=== PATIENT | male | born 1935 | race Caucasian/White ===

== ENCOUNTER 2016-10-03 13:28 | Outpatient (RCR) | payer MEDICARE, BC ==
[~2016-10-03 13:28] MED LIST: ATORVASTATIN CA10 MG PO; CARAFATE PO; COUMADIN7.5 MG PO; CYCLOSPORINE25 MG PO; GABAPENTIN100 MG PO; GABAPENTIN600 MG PO; IMIPRAMINE25 MG PO; INDERAL 10MG10 MG PO; MIDODRINE HCL5 MG PO; OMEPRAZOLE40 MG PO; SIMVASTATIN80 MG PO; [UNRECOGNIZED DRUG - REMARK]; [UNRECOGNIZED DRUG - REMARK]
== END 2017-01-01 | disposition home or self-care (01) ==
LOC: CARDREHAB 13:28
DX: Z48.812 Encounter for surgical aftercare following surgery on the circulatory system (principal); I21.4 Non-ST elevation (NSTEMI) myocardial infarction

== ENCOUNTER → 2017-01-27 | Outpatient (CLI) | payer MEDICARE, BC | LOC: RAD 14:37 | DX: R09.89 Other specified symptoms and signs involving the circulatory and respiratory systems (principal) ==

== ENCOUNTER → 2017-02-06 | Outpatient (CLI) | payer MEDICARE, BC | LOC: LAB 14:20 | DX: N18.4 Chronic kidney disease, stage 4 (severe) (principal); N04.9 Nephrotic syndrome with unspecified morphologic changes ==

== ENCOUNTER → 2017-05-12 | Outpatient (CLI) | payer MEDICARE, BC ==
[2015-09-23 10:20] VITALS: BP 155/91
== END ==
LOC: LAB 13:41
DX: N18.4 Chronic kidney disease, stage 4 (severe) (principal); E87.2 Acidosis

== ENCOUNTER → 2017-06-22 | Outpatient (CLI) | payer MEDICARE, BC ==
[2015-09-23 10:20] VITALS: BP 155/91
== END ==
LOC: LAB 10:17
DX: N18.4 Chronic kidney disease, stage 4 (severe) (principal); N04.9 Nephrotic syndrome with unspecified morphologic changes

== ENCOUNTER → 2017-08-24 | Outpatient (CLI) | payer MEDICARE, BC ==
[2015-09-23 10:20] VITALS: BP 155/91
== END ==
LOC: LAB 08:04
DX: N18.4 Chronic kidney disease, stage 4 (severe) (principal); N40.1 Benign prostatic hyperplasia with lower urinary tract symptoms; N04.9 Nephrotic syndrome with unspecified morphologic changes

== ENCOUNTER → 2017-08-29 | Outpatient (CLI) | payer MEDICARE, BC ==
[2015-09-23 10:20] VITALS: BP 155/91
== END ==
LOC: RAD 11:02
DX: I70.201 Unspecified atherosclerosis of native arteries of extremities, right leg (principal); R22.41 Localized swelling, mass and lump, right lower limb

== ENCOUNTER → 2017-12-04 | Outpatient (CLI) | payer MEDICARE, BC ==
[2015-09-23 10:20] VITALS: BP 155/91
[2017-12-04 14:43] LABS: HEMATOCRIT 38.6 % (42.0-52.0); HEMOGLOBIN 12.6 g/dL (13.5-18.0); MEAN CELL VOLUME 98 fl (78-100); MEAN CORPUSCULAR HEMOGLOBIN 32 pg (27-31); MEAN CORPUSCULAR HGB CONC 33 g/dL (33-37); MEAN PLATELET VOLUME 9.5 fl (7.4-10.4); PLATELET COUNT 215 K/mm3 (130-400); RED BLOOD COUNT 3.93 M/mm3 (4.20-5.60); RED CELL DISTRIBUTION WIDTH 13.6 % (11.5-14.5); WHITE BLOOD COUNT 5.3 K/mm3 (4.8-10.8)
[2017-12-04 14:51] LABS: ALBUMIN 4.3 g/dL (3.5-5.0); BUN/CREATININE RATIO 17.3 (6.0-26.0); CALCIUM 8.5 mg/dL (8.4-10.2); POTASSIUM 4.4 mmol/L (3.6-5.0); TOTAL BILIRUBIN 0.8 mg/dL (0.2-1.3); TOTAL PROTEIN 7.6 g/dL (6.3-8.2)
[2017-12-04 16:13] LABS: URINE APPEARANCE CLEAR; URINE BILIRUBIN NEGATIVE (NEGATIVE); URINE BLOOD NEGATIVE (NEGATIVE); URINE COLOR YELLOW; URINE GLUCOSE NEGATIVE (NEGATIVE); URINE KETONE NEGATIVE (NEGATIVE); URINE LEUKOCYTE ESTERASE NEGATIVE (NEGATIVE); URINE NITRATE NEGATIVE (NEGATIVE); URINE PROTEIN(semi-quant) TRACE mg/dL (NEGATIVE); URINE UROBILINOGEN NORMAL (NORMAL); URINE WBC 0-1 /hpf (0-3)
[2017-12-04 21:19] LABS: LYMPHOCYTE 15 % (20-51); MONOCYTE 12 % (3-10); NEUTROPHILS 64 % (42-75)
[2017-12-04 21:20] LABS: ERYTHROCYTE SEDIMENTATION RATE 14 mm/hr (0-20)
[2017-12-04 22:55] LABS: C-REACTIVE PROTEIN XXX
[2017-12-05 23:51] LABS: ANA SCREEN with REFLEX Positive (Negative)
== END ==
LOC: LAB 14:11
PROVIDERS: Internal Medicine
DX: N18.3 Chronic kidney disease, stage 3 (moderate) (principal); I25.10 Atherosclerotic heart disease of native coronary artery without angina pectoris; Z12.5 Encounter for screening for malignant neoplasm of prostate; L29.9 Pruritus, unspecified; E78.2 Mixed hyperlipidemia

== ENCOUNTER → 2017-12-15 | Outpatient (CLI) | payer MEDICARE, BC ==
[2015-09-23 10:20] VITALS: BP 155/91
== END ==
LOC: LAB 13:10
DX: N18.3 Chronic kidney disease, stage 3 (moderate) (principal); M79.1 Myalgia

== ENCOUNTER → 2017-12-21 | Outpatient (CLI) | payer MEDICARE, BC ==
[2015-09-23 10:20] VITALS: BP 155/91
== END ==
LOC: RAD 14:33
DX: J84.112 Idiopathic pulmonary fibrosis (principal); N04.2 Nephrotic syndrome with diffuse membranous glomerulonephritis; R91.8 Other nonspecific abnormal finding of lung field; I25.10 Atherosclerotic heart disease of native coronary artery without angina pectoris; I70.0 Atherosclerosis of aorta

== ENCOUNTER → 2018-01-01 | Outpatient (CLI) | payer MEDICARE, BC ==
[2015-09-23 10:20] VITALS: BP 155/91
[2018-01-01 13:23] LABS: HEMATOCRIT 37.6 % (42.0-52.0); HEMOGLOBIN 12.3 g/dL (13.5-18.0); MEAN CELL VOLUME 98 fl (78-100); MEAN CORPUSCULAR HEMOGLOBIN 32 pg (27-31); MEAN CORPUSCULAR HGB CONC 33 g/dL (33-37); MEAN PLATELET VOLUME 9.8 fl (7.4-10.4); PLATELET COUNT 202 K/mm3 (130-400); RED BLOOD COUNT 3.85 M/mm3 (4.20-5.60); WHITE BLOOD COUNT 4.3 K/mm3 (4.8-10.8)
[2018-01-01 13:29] LABS: BUN/CREATININE RATIO 17.5 (6.0-26.0); CALCIUM 8.5 mg/dL (8.4-10.2); POTASSIUM 4.6 mmol/L (3.6-5.0)
[2018-01-01 14:17] LABS: LYMPHOCYTE 16 % (20-51); MONOCYTE 7 % (3-10); NEUTROPHILS 66 % (42-75)
== END ==
LOC: LAB 11:50
PROVIDERS: Internal Medicine
DX: N18.4 Chronic kidney disease, stage 4 (severe) (principal); N04.9 Nephrotic syndrome with unspecified morphologic changes

== ENCOUNTER → 2018-03-15 | Outpatient (CLI) | payer MEDICARE, BC ==
[2015-09-23 10:20] VITALS: BP 155/91
[2018-03-15 09:41] LABS: HEMATOCRIT 36.8 % (42.0-52.0); HEMOGLOBIN 12.2 g/dL (13.5-18.0); MEAN CELL VOLUME 98 fl (78-100); MEAN CORPUSCULAR HEMOGLOBIN 33 pg (27-31); MEAN CORPUSCULAR HGB CONC 33 g/dL (33-37); MEAN PLATELET VOLUME 9.1 fl (7.4-10.4); PLATELET COUNT 201 K/mm3 (130-400); RED BLOOD COUNT 3.74 M/mm3 (4.20-5.60); RED CELL DISTRIBUTION WIDTH 13.6 % (11.5-14.5); WHITE BLOOD COUNT 4.9 K/mm3 (4.8-10.8)
[2018-03-15 09:47] LABS: ALBUMIN 3.6 g/dL (3.5-5.0); BUN/CREATININE RATIO 16.9 (6.0-26.0); CALCIUM 8.4 mg/dL (8.4-10.2); POTASSIUM 4.1 mmol/L (3.6-5.0); TOTAL BILIRUBIN 0.7 mg/dL (0.2-1.3); TOTAL PROTEIN 6.8 g/dL (6.3-8.2)
[2018-03-15 10:38] LABS: LYMPHOCYTE 9 % (20-51); MONOCYTE 9 % (3-10); NEUTROPHILS 75 % (42-75)
[2018-03-15 22:58] LABS: IGM,SERUM 49 mg/dL (22-240); IMMUNOGLOBULIN A 206 mg/dL (101-645); IMMUNOGLOBULIN G 912 mg/dL (540-1822)
[2018-03-15 23:16] LABS: HEPATITIS B CORE AB TOTAL Negative (()); HEPATITIS B SURFACE ANTIGEN Negative (())
[2018-03-15 23:17] LABS: HEPATITIS B SURFACE ANTIBODY <2.0 (()); HEPATITIS C VIRUS ANTIBODY Negative (())
== END ==
LOC: LAB 09:04
DX: L12.0 Bullous pemphigoid (principal); Z11.59 Encounter for screening for other viral diseases; Z11.4 Encounter for screening for human immunodeficiency virus [HIV]; Z79.899 Other long term (current) drug therapy

== ENCOUNTER → 2018-03-20 | Outpatient (CLI) | payer MEDICARE, BC ==
[2015-09-23 10:20] VITALS: BP 155/91
== END ==
LOC: LAB 10:33
DX: L12.0 Bullous pemphigoid (principal); Z79.899 Other long term (current) drug therapy; Z11.59 Encounter for screening for other viral diseases; Z11.4 Encounter for screening for human immunodeficiency virus [HIV]

== ENCOUNTER 2018-04-10 13:27 | Observation (INO) | payer MEDICARE, BC ==
[~2018-04-10] VITALS: Ht 185.4 cm; Wt 85.5 kg
[~2018-04-10 13:27] MED LIST changes: -GABAPENTIN600 MG PO; +NEURONTIN600 M1 PO
[2018-04-10] MEDS ORDERED: NEURONTIN300 MG/CAP PO (13:37)
[2018-04-10] MEDS ORDERED: AMLODIPINE BESYL5 MG PO (13:38)
[2018-04-10] MEDS ORDERED: LORAZEPAM1 M1 PO (13:38)
[2018-04-10] MEDS ORDERED: CLOPIDOGREL75 M2 PEG (13:38)
[2018-04-10] MEDS ORDERED: ASPIRIN 81M81 MG/TA2 PO (13:40)
[2018-04-10] MEDS ORDERED: PANTOPRAZOLE SO40 MG PO (13:40)
[2018-04-10 14:35] VITALS: BP 92/65
[2018-04-10 14:44] LABS: MEAN CELL VOLUME 97 fl (78-100); MEAN CORPUSCULAR HEMOGLOBIN 32 pg (27-31); MEAN CORPUSCULAR HGB CONC 33 g/dL (33-37); MEAN PLATELET VOLUME 9.2 fl (7.4-10.4); PLATELET COUNT 168 K/mm3 (130-400); RED BLOOD COUNT 4.04 M/mm3 (4.20-5.60); RED CELL DISTRIBUTION WIDTH 14.1 % (11.5-14.5); WHITE BLOOD COUNT 5.7 K/mm3 (4.8-10.8)
[2018-04-10 14:59] LABS: LYMPHOCYTE 11 % (20-51); MONOCYTE 11 % (3-10); NEUTROPHILS 76 % (42-75)
[2018-04-10 15:05] LABS: ALBUMIN 3.3 g/dL (3.5-5.0); BUN/CREATININE RATIO 12.9 (6.0-26.0); POTASSIUM 4.2 mmol/L (3.6-5.0); TOTAL PROTEIN 6.4 g/dL (6.3-8.2)
[2018-04-10 15:44] LABS: URINE APPEARANCE HAZY; URINE BILIRUBIN NEGATIVE (NEGATIVE); URINE BLOOD NEGATIVE (NEGATIVE); URINE COLOR YELLOW; URINE GLUCOSE NEGATIVE (NEGATIVE); URINE KETONE NEGATIVE (NEGATIVE); URINE LEUKOCYTE ESTERASE NEGATIVE (NEGATIVE); URINE NITRATE NEGATIVE (NEGATIVE); URINE PROTEIN(semi-quant) TRACE mg/dL (NEGATIVE); URINE UROBILINOGEN NORMAL (NORMAL)
[2018-04-10 17:33] VITALS: BP 131/61
[2018-04-10 19:33] VITALS: BP 133/82
[2018-04-10 19:38] VITALS: BP 133/82
[2018-04-10] MEDS ORDERED: CLOPIDOGREL PO (20:24)
[2018-04-10 23:30] VITALS: BP 105/64
[2018-04-11] VITALS (9 sets, daily range): BP systolic 111–138; BP diastolic 66–86
[2018-04-11 06:23] LABS: BUN/CREATININE RATIO 12.8 (6.0-26.0); CALCIUM 7.4 mg/dL (8.4-10.2); POTASSIUM 4.2 mmol/L (3.6-5.0)
[2018-04-11 06:24] LABS: HEMATOCRIT 36.5 % (42.0-52.0); LYMPHOCYTE 10 % (20-51); MEAN CELL VOLUME 97 fl (78-100); MEAN CORPUSCULAR HEMOGLOBIN 32 pg (27-31); MEAN CORPUSCULAR HGB CONC 33 g/dL (33-37); MEAN PLATELET VOLUME 9.4 fl (7.4-10.4); MONOCYTE 10 % (3-10); NEUTROPHILS 75 % (42-75); PLATELET COUNT 157 K/mm3 (130-400); RED BLOOD COUNT 3.75 M/mm3 (4.20-5.60); RED CELL DISTRIBUTION WIDTH 14.2 % (11.5-14.5)
== END 2018-04-11 22:25 | disposition other institution (70) ==
LOC: ED 13:27 → MED/SURG 18:14
PROVIDERS: Physician Assistant; ADMIT Nurse Practitioner Family
DX: I95.1 Orthostatic hypotension (principal); E86.0 Dehydration; I25.10 Atherosclerotic heart disease of native coronary artery without angina pectoris; E78.5 Hyperlipidemia, unspecified; I12.9 Hypertensive chronic kidney disease with stage 1 through stage 4 chronic kidney disease, or unspecified chronic kidney disease; N18.3 Chronic kidney disease, stage 3 (moderate); G47.33 Obstructive sleep apnea (adult) (pediatric); Z86.711 Personal history of pulmonary embolism; K21.9 Gastro-esophageal reflux disease without esophagitis; Z85.46 Personal history of malignant neoplasm of prostate; Z79.02 Long term (current) use of antithrombotics/antiplatelets; J84.10 Pulmonary fibrosis, unspecified; Z91.81 History of falling; Z79.82 Long term (current) use of aspirin
CPT/HCPCS: G0378; J7030

== ENCOUNTER 2018-04-11 22:10 | Inpatient (IN) | payer MEDICARE, BC ==
[~2018-04-11] VITALS: Ht 185.4 cm; Wt 85.8 kg
[~2018-04-11 22:10] MED LIST changes: +AMLODIPINE BESYL5 MG PO; +ASPIRIN 81M81 MG/TA2 PO; +CLOPIDOGREL PO; +CLOPIDOGREL75 M2 PEG; +LORAZEPAM1 M1 PO; +NEURONTIN300 MG/CAP PO; +PANTOPRAZOLE SO40 MG PO
[2018-04-11 23:27] VITALS: BP 130/86
[2018-04-11 23:32] VITALS: BP 130/86
[2018-04-12 03:00] VITALS: BP 125/61
[2018-04-12 06:40] LABS: BUN/CREATININE RATIO 13.4 (6.0-26.0); CALCIUM 7.6 mg/dL (8.4-10.2); POTASSIUM 4.3 mmol/L (3.6-5.0)
[2018-04-12 06:56] LABS: HEMATOCRIT 34.6 % (42.0-52.0); HEMOGLOBIN 11.2 g/dL (13.5-18.0); LYMPHOCYTE 18 % (20-51); MEAN CELL VOLUME 98 fl (78-100); MEAN CORPUSCULAR HEMOGLOBIN 32 pg (27-31); MEAN CORPUSCULAR HGB CONC 32 g/dL (33-37); MEAN PLATELET VOLUME 9.4 fl (7.4-10.4); METAMYELOCYTE 2 % (0-0); MONOCYTE 12 % (3-10); MYELOCYTE 3 % (0-0); NEUTROPHILS 62 % (42-75); PLATELET COUNT 144 K/mm3 (130-400); RED BLOOD COUNT 3.52 M/mm3 (4.20-5.60); RED CELL DISTRIBUTION WIDTH 14.1 % (11.5-14.5); WHITE BLOOD COUNT 4.3 K/mm3 (4.8-10.8)
[2018-04-12 06:59] VITALS: BP 139/86
[2018-04-12 07:02] VITALS: BP 141/80
== END 2018-04-12 09:07 | disposition home or self-care (01) | DRG 312 ==
LOC: MED/SURG 22:10
PROVIDERS: ADMIT Nurse Practitioner Primary Care
DX: I95.1 Orthostatic hypotension (principal); N05.2 Unspecified nephritic syndrome with diffuse membranous glomerulonephritis; N18.9 Chronic kidney disease, unspecified; I12.9 Hypertensive chronic kidney disease with stage 1 through stage 4 chronic kidney disease, or unspecified chronic kidney disease; I25.10 Atherosclerotic heart disease of native coronary artery without angina pectoris; J84.10 Pulmonary fibrosis, unspecified; Z86.711 Personal history of pulmonary embolism; Z79.01 Long term (current) use of anticoagulants; Z85.46 Personal history of malignant neoplasm of prostate; Z87.891 Personal history of nicotine dependence
CPT/HCPCS: J7030

== ENCOUNTER → 2018-04-24 | Outpatient (CLI) | payer MEDICARE, BC ==
[2018-04-12 07:02] VITALS: BP 141/80
== END ==
LOC: RAD 15:15
DX: R06.02 Shortness of breath (principal)

== ENCOUNTER → 2018-05-11 | Outpatient (CLI) | payer MEDICARE, BC ==
[2018-04-12 07:02] VITALS: BP 141/80
== END ==
LOC: CARDREHAB 08:34 → CARDLAB 11:24
DX: R06.02 Shortness of breath (principal); I25.10 Atherosclerotic heart disease of native coronary artery without angina pectoris; N18.3 Chronic kidney disease, stage 3 (moderate); Z86.79 Personal history of other diseases of the circulatory system; I25.2 Old myocardial infarction
CPT/HCPCS: A9500

== ENCOUNTER → 2018-06-22 | Outpatient (CLI) | payer MEDICARE, BC ==
[2018-06-22 09:16] LABS: HEMATOCRIT 36.2 % (42.0-52.0); HEMOGLOBIN 12.1 g/dL (13.5-18.0); MEAN PLATELET VOLUME 8.3 fl (7.4-10.4); RED BLOOD COUNT 3.64 M/mm3 (4.20-5.60); RED CELL DISTRIBUTION WIDTH 14.9 % (11.5-14.5); WHITE BLOOD COUNT 4.4 K/mm3 (4.8-10.8)
[2018-06-22 09:28] LABS: BUN/CREATININE RATIO 11.2 (6.0-26.0); CALCIUM 8.4 mg/dL (8.4-10.2); POTASSIUM 4.9 mmol/L (3.6-5.0)
== END ==
LOC: LAB 09:00
PROVIDERS: Internal Medicine
DX: N18.4 Chronic kidney disease, stage 4 (severe) (principal); N04.9 Nephrotic syndrome with unspecified morphologic changes; N28.9 Disorder of kidney and ureter, unspecified

== ENCOUNTER 2018-08-30 08:30 | Outpatient (RCR) | payer MEDICARE, BC | END 2018-08-30 09:00 | disposition home or self-care (01) | LOC: PT 08:30 | DX: R29.898 Other symptoms and signs involving the musculoskeletal system (principal); M21.371 Foot drop, right foot; G62.9 Polyneuropathy, unspecified | CPT/HCPCS: G8978-GP; G8979-GP ==

== ENCOUNTER → 2018-10-26 | Outpatient (CLI) | payer MEDICARE, BC ==
[2018-10-26 09:54] LABS: HEMATOCRIT 37.9 % (42.0-52.0); HEMOGLOBIN 12.5 g/dL (13.5-18.0); MEAN CELL VOLUME 95 fl (78-100); MEAN CORPUSCULAR HEMOGLOBIN 31 pg (27-31); MEAN CORPUSCULAR HGB CONC 33 g/dL (33-37); MEAN PLATELET VOLUME 9.7 fl (7.4-10.4); PLATELET COUNT 250 K/mm3 (130-400); RED BLOOD COUNT 3.99 M/mm3 (4.20-5.60); RED CELL DISTRIBUTION WIDTH 12.8 % (11.5-14.5); WHITE BLOOD COUNT 4.3 K/mm3 (4.8-10.8)
[2018-10-26 10:07] LABS: URINE APPEARANCE CLEAR; URINE BILIRUBIN NEGATIVE (NEGATIVE); URINE BLOOD NEGATIVE (NEGATIVE); URINE COLOR YELLOW; URINE GLUCOSE NEGATIVE (NEGATIVE); URINE KETONE NEGATIVE (NEGATIVE); URINE LEUKOCYTE ESTERASE NEGATIVE (NEGATIVE); URINE MUCUS PRESENT (NOT PRESENT); URINE NITRATE NEGATIVE (NEGATIVE); URINE PROTEIN(semi-quant) 1+ mg/dL (NEGATIVE); URINE UROBILINOGEN NORMAL (NORMAL); URINE WBC 0-1 /hpf (0-3)
[2018-10-26 10:14] LABS: ALBUMIN 4.1 g/dL (3.5-5.0); CALCIUM 8.8 mg/dL (8.4-10.2); TOTAL BILIRUBIN 0.7 mg/dL (0.2-1.3); TOTAL PROTEIN 6.9 g/dL (6.3-8.2)
[2018-10-26 12:48] LABS: ERYTHROCYTE SEDIMENTATION RATE 22 mm/hr (0-20); LYMPHOCYTE 18 % (20-51); MONOCYTE 13 % (3-10); NEUTROPHILS 64 % (42-75)
== END ==
LOC: RAD 09:25 → LAB 09:25
PROVIDERS: Internal Medicine
DX: R06.02 Shortness of breath (principal); Z12.5 Encounter for screening for malignant neoplasm of prostate; I12.9 Hypertensive chronic kidney disease with stage 1 through stage 4 chronic kidney disease, or unspecified chronic kidney disease; N18.4 Chronic kidney disease, stage 4 (severe); I25.10 Atherosclerotic heart disease of native coronary artery without angina pectoris; L29.9 Pruritus, unspecified; E78.2 Mixed hyperlipidemia; N40.1 Benign prostatic hyperplasia with lower urinary tract symptoms

== ENCOUNTER → 2018-10-31 | Outpatient (CLI) | payer MEDICARE, BC ==
[2018-10-31 14:09] LABS: CALCIUM 9.1 mg/dL (8.4-10.2); POTASSIUM 4.6 mmol/L (3.6-5.0)
== END ==
LOC: LAB 13:41
PROVIDERS: Internal Medicine
DX: N18.4 Chronic kidney disease, stage 4 (severe) (principal)

== ENCOUNTER → 2018-11-26 | Outpatient (CLI) | payer MEDICARE, BC ==
[2018-11-26 16:30] LABS: CALCIUM 8.7 mg/dL (8.4-10.2); POTASSIUM 4.2 mmol/L (3.6-5.0)
[2018-11-26 18:44] LABS: PH-URINE 6.5 (5.0 - 8.0); URINE APPEARANCE CLEAR; URINE BILIRUBIN NEGATIVE (NEGATIVE); URINE BLOOD TRACE (NEGATIVE); URINE COLOR YELLOW; URINE GLUCOSE NEGATIVE (NEGATIVE); URINE KETONE NEGATIVE (NEGATIVE); URINE LEUKOCYTE ESTERASE NEGATIVE (NEGATIVE); URINE NITRATE NEGATIVE (NEGATIVE); URINE PROTEIN(semi-quant) NEGATIVE (NEGATIVE); URINE UROBILINOGEN NORMAL (NORMAL); URINE WBC 0-1 /hpf (0-3)
[2018-11-27 14:00] LABS: TESTOSTERONE 29 ng/dL (221-716)
[2018-11-27 14:10] LABS: IGM,SERUM 43 mg/dL (22-240); IMMUNOGLOBULIN G 867 mg/dL (540-1822)
[2018-11-27 21:23] LABS: IMMUNOGLOBULIN A 170 mg/dL (101-645)
== END ==
LOC: LAB 15:20
PROVIDERS: Internal Medicine
DX: Z12.5 Encounter for screening for malignant neoplasm of prostate (principal); I12.9 Hypertensive chronic kidney disease with stage 1 through stage 4 chronic kidney disease, or unspecified chronic kidney disease; N18.4 Chronic kidney disease, stage 4 (severe); E78.2 Mixed hyperlipidemia; M85.80 Other specified disorders of bone density and structure, unspecified site; R20.2 Paresthesia of skin; I25.10 Atherosclerotic heart disease of native coronary artery without angina pectoris; L29.9 Pruritus, unspecified; R53.1 Weakness; I95.1 Orthostatic hypotension; M79.2 Neuralgia and neuritis, unspecified

== ENCOUNTER → 2018-12-17 | Outpatient (CLI) | payer MEDICARE, BC | LOC: RAD 09:25 | DX: M16.0 Bilateral primary osteoarthritis of hip (principal); Z98.890 Other specified postprocedural states ==

== ENCOUNTER → 2019-04-16 | Outpatient (CLI) | payer MEDICARE, BC ==
[2019-01-17 23:30] VITALS: BP 165/73
[~2019-04-16] MED LIST changes: +GENERLAC10 GM/15 M PO
[2019-04-16 11:13] LABS: HEMATOCRIT 36.8 % (42.0-52.0); HEMOGLOBIN 11.4 g/dL (13.5-18.0); MEAN CELL VOLUME 88 fl (78-100); MEAN CORPUSCULAR HEMOGLOBIN 27 pg (27-31); MEAN CORPUSCULAR HGB CONC 31 g/dL (33-37); MEAN PLATELET VOLUME 9.5 fl (7.4-10.4); PLATELET COUNT 222 K/mm3 (130-400); WHITE BLOOD COUNT 4.5 K/mm3 (4.8-10.8)
[2019-04-16 12:55] LABS: LYMPHOCYTE 13 % (20-51); MONOCYTE 11 % (3-10); NEUTROPHILS 71 % (42-75)
[2019-04-16 13:11] LABS: ERYTHROCYTE SEDIMENTATION RATE 15 mm/hr (0-20)
[2019-04-16 13:44] LABS: ALBUMIN 3.9 g/dL (3.4-4.8); CALCIUM 8.3 mg/dL (8.8-10.0); POTASSIUM 4.2 mmol/L (3.5-5.1); TOTAL BILIRUBIN 0.5 mg/dL (0.2-1.2)
== END ==
LOC: LAB 10:54
PROVIDERS: Internal Medicine
DX: Z12.5 Encounter for screening for malignant neoplasm of prostate (principal); L29.9 Pruritus, unspecified; E78.2 Mixed hyperlipidemia; M85.80 Other specified disorders of bone density and structure, unspecified site; I25.10 Atherosclerotic heart disease of native coronary artery without angina pectoris; N18.3 Chronic kidney disease, stage 3 (moderate)

== ENCOUNTER → 2019-04-29 | Outpatient (CLI) | payer MEDICARE, BC ==
[2019-01-17 23:30] VITALS: BP 165/73
[2019-04-29 08:45] LABS: URINE WBC 0 /hpf (0-3)
[2019-04-29 09:32] LABS: CALCIUM 8.9 mg/dL (8.3-10.5); POTASSIUM 4.4 mmol/L (3.5-5.1)
[2019-04-29 11:29] LABS: URINE APPEARANCE CLEAR; URINE BILIRUBIN NEGATIVE (NEGATIVE); URINE BLOOD NEGATIVE (NEGATIVE); URINE COLOR YELLOW; URINE GLUCOSE NEGATIVE (NEGATIVE); URINE KETONE NEGATIVE (NEGATIVE); URINE LEUKOCYTE ESTERASE NEGATIVE (NEGATIVE); URINE NITRATE NEGATIVE (NEGATIVE); URINE PROTEIN(semi-quant) TRACE mg/dL (NEGATIVE); URINE UROBILINOGEN NORMAL (NORMAL)
[2019-04-29 11:30] LABS: URINE MUCUS PRESENT (NOT PRESENT)
== END ==
LOC: LAB 08:28
PROVIDERS: Internal Medicine
DX: N18.4 Chronic kidney disease, stage 4 (severe) (principal); N05.9 Unspecified nephritic syndrome with unspecified morphologic changes; N02.8 Recurrent and persistent hematuria with other morphologic changes

== ENCOUNTER → 2019-08-22 | Outpatient (CLI) | payer MEDICARE, BC ==
[2019-01-17 23:30] VITALS: BP 165/73
[2019-08-22 10:33] LABS: POTASSIUM 4.8 mmol/L (3.5-5.1)
[2019-08-22 10:34] LABS: CALCIUM 8.4 mg/dL (8.3-10.5)
[2019-08-22 10:54] LABS: URINE APPEARANCE CLEAR; URINE BILIRUBIN NEGATIVE (NEGATIVE); URINE BLOOD NEGATIVE (NEGATIVE); URINE COLOR YELLOW; URINE GLUCOSE NEGATIVE (NEGATIVE); URINE KETONE NEGATIVE (NEGATIVE); URINE LEUKOCYTE ESTERASE NEGATIVE (NEGATIVE); URINE MUCUS PRESENT (NOT PRESENT); URINE NITRATE NEGATIVE (NEGATIVE); URINE PROTEIN(semi-quant) TRACE mg/dL (NEGATIVE); URINE UROBILINOGEN NORMAL (NORMAL)
== END ==
LOC: LAB 10:12
PROVIDERS: Internal Medicine Nephrology
DX: I12.9 Hypertensive chronic kidney disease with stage 1 through stage 4 chronic kidney disease, or unspecified chronic kidney disease (principal); N18.4 Chronic kidney disease, stage 4 (severe)

== ENCOUNTER → 2019-09-03 | Outpatient (CLI) | payer MEDICARE, BC ==
[2019-01-17 23:30] VITALS: BP 165/73
[2019-09-03 09:16] LABS: HEMATOCRIT 38.9 % (42.0-52.0); HEMOGLOBIN 12.3 g/dL (13.5-18.0); MEAN CELL VOLUME 89 fl (78-100); MEAN CORPUSCULAR HEMOGLOBIN 28 pg (27-31); MEAN CORPUSCULAR HGB CONC 32 g/dL (33-37); MEAN PLATELET VOLUME 9.8 fl (7.4-10.4); PLATELET COUNT 223 K/mm3 (130-400); RED BLOOD COUNT 4.36 M/mm3 (4.20-5.60); RED CELL DISTRIBUTION WIDTH 15.3 % (11.5-14.5); WHITE BLOOD COUNT 5.1 K/mm3 (4.8-10.8)
[2019-09-03 09:23] LABS: POTASSIUM 4.6 mmol/L (3.5-5.1)
[2019-09-03 09:24] LABS: CALCIUM 8.7 mg/dL (8.3-10.5)
[2019-09-03 09:25] LABS: TOTAL PROTEIN 7.3 g/dL (6.2-8.1)
[2019-09-03 09:27] LABS: TOTAL BILIRUBIN 0.5 mg/dL (0.2-1.2)
[2019-09-03 12:07] LABS: LYMPHOCYTE 22 % (20-51); MONOCYTE 11 % (3-10); NEUTROPHILS 48 % (42-75)
[2019-09-03 12:08] LABS: ERYTHROCYTE SEDIMENTATION RATE 11 mm/hr (0-20)
== END ==
LOC: RAD 08:47
PROVIDERS: Internal Medicine
DX: S29.9XXA Unspecified injury of thorax, initial encounter (principal); R06.02 Shortness of breath

== ENCOUNTER → 2020-04-21 | Outpatient (CLI) | payer MEDICARE, BC ==
[2019-01-17 23:30] VITALS: BP 165/73
[2020-04-21 09:20] LABS: HEMATOCRIT 39.2 % (42.0-52.0); HEMOGLOBIN 12.5 g/dL (13.5-18.0); MEAN CELL VOLUME 88 fl (78-100); MEAN CORPUSCULAR HEMOGLOBIN 28 pg (27-31); MEAN CORPUSCULAR HGB CONC 32 g/dL (33-37); MEAN PLATELET VOLUME 8.9 fl (7.4-10.4); PLATELET COUNT 185 K/mm3 (130-400); RED BLOOD COUNT 4.48 M/mm3 (4.20-5.60); RED CELL DISTRIBUTION WIDTH 17.5 % (11.5-14.5); WHITE BLOOD COUNT 4.1 K/mm3 (4.8-10.8)
[2020-04-21 09:36] LABS: POTASSIUM 4.3 mmol/L (3.5-5.1)
[2020-04-21 09:37] LABS: CALCIUM 8.5 mg/dL (8.3-10.5)
[2020-04-21 09:39] LABS: TOTAL PROTEIN 6.9 g/dL (6.2-8.1)
[2020-04-21 09:40] LABS: TOTAL BILIRUBIN 0.6 mg/dL (0.2-1.2)
[2020-04-21 13:03] LABS: ERYTHROCYTE SEDIMENTATION RATE 5 mm/hr (0-20); LYMPHOCYTE 37 % (20-51); MONOCYTE 13 % (3-10); NEUTROPHILS 41 % (42-75)
[2020-04-21 13:04] LABS: BAND 0 % (0-10)
[2020-04-21 22:05] LABS: TESTOSTERONE 44 ng/dL (221-716)
== END ==
LOC: LAB 09:03
PROVIDERS: Internal Medicine Nephrology
DX: Z12.5 Encounter for screening for malignant neoplasm of prostate (principal); I12.9 Hypertensive chronic kidney disease with stage 1 through stage 4 chronic kidney disease, or unspecified chronic kidney disease; I25.10 Atherosclerotic heart disease of native coronary artery without angina pectoris; N18.4 Chronic kidney disease, stage 4 (severe); E78.2 Mixed hyperlipidemia; M85.80 Other specified disorders of bone density and structure, unspecified site; L29.9 Pruritus, unspecified; R20.2 Paresthesia of skin

== ENCOUNTER → 2020-05-27 | Outpatient (CLI) | payer MEDICARE, BC ==
[~2020-05-27] VITALS: Ht 185.4 cm; Wt 88.6 kg
[~2020-05-27] MED LIST changes: +CEPHALEXIN500 M1 PO; +CLOPIDOGREL75 M2 PO; +D3-200050 MCG PO; +DILTIAZEM 24HR180 MG PO; +STROVITE FORTE1 TAB PO
[2020-05-27 11:20] VITALS: BP 127/81
[2020-05-27 12:47] VITALS: BP 136/62
[2020-05-27 14:46] VITALS: BP 113/61
[2020-05-27 15:21] VITALS: BP 121/64
== END ==
LOC: AMSURD 10:55
DX: Z51.81 Encounter for therapeutic drug level monitoring (principal); Z79.899 Other long term (current) drug therapy
CPT/HCPCS: J1200; J7040; J9312

== ENCOUNTER 2020-06-05 15:44 | Inpatient (IN) | payer MEDICARE, BC ==
[~2020-06-05] VITALS: Ht 185.4 cm; Wt 87.2 kg
[2020-06-05 15:56] VITALS: BP 113/63
[2020-06-05 16:34] VITALS: BP 113/63
[2020-06-05 22:17] VITALS: BP 110/56
[2020-06-06] VITALS (7 sets, daily range): BP systolic 94–131; BP diastolic 55–76
[2020-06-06 07:52] LABS: HEMATOCRIT 32.8 % (42.0-52.0); HEMOGLOBIN 10.4 g/dL (13.5-18.0); MEAN CELL VOLUME 91 fl (78-100); MEAN CORPUSCULAR HEMOGLOBIN 29 pg (27-31); MEAN CORPUSCULAR HGB CONC 32 g/dL (33-37); MEAN PLATELET VOLUME 9.2 fl (7.4-10.4); PLATELET COUNT 170 K/mm3 (130-400); RED BLOOD COUNT 3.61 M/mm3 (4.20-5.60); RED CELL DISTRIBUTION WIDTH 16.5 % (11.5-14.5); WHITE BLOOD COUNT 10.5 K/mm3 (4.8-10.8)
[2020-06-06 08:45] LABS: BAND 1 % (0-10); LYMPHOCYTE 8 % (20-51); MONOCYTE 7 % (3-10); NEUTROPHILS 84 % (42-75)
[2020-06-06 09:09] LABS: POTASSIUM 4.2 mmol/L (3.5-5.1)
[2020-06-06 17:14] LABS: HEMATOCRIT 31.8 % (42.0-52.0); HEMOGLOBIN 10.1 g/dL (13.5-18.0)
[2020-06-06 17:25] LABS: CALCIUM 7.2 mg/dL (8.3-10.5)
[2020-06-07 02:33] VITALS: BP 123/60
[2020-06-07 05:26] VITALS: BP 115/62
[2020-06-07 08:29] LABS: HEMATOCRIT 32.4 % (42.0-52.0); HEMOGLOBIN 10.5 g/dL (13.5-18.0); MEAN CELL VOLUME 89 fl (78-100); MEAN CORPUSCULAR HEMOGLOBIN 29 pg (27-31); MEAN CORPUSCULAR HGB CONC 32 g/dL (33-37); MEAN PLATELET VOLUME 9.7 fl (7.4-10.4); PLATELET COUNT 178 K/mm3 (130-400); RED BLOOD COUNT 3.63 M/mm3 (4.20-5.60); RED CELL DISTRIBUTION WIDTH 16.3 % (11.5-14.5); WHITE BLOOD COUNT 10.8 K/mm3 (4.8-10.8)
[2020-06-07 08:39] LABS: POTASSIUM 3.9 mmol/L (3.5-5.1)
[2020-06-07 08:55] LABS: CALCIUM 7.4 mg/dL (8.3-10.5)
[2020-06-07 09:18] LABS: LYMPHOCYTE 7 % (20-51); MONOCYTE 10 % (3-10); NEUTROPHILS 79 % (42-75)
[2020-06-07 09:50] LABS: URINE APPEARANCE CLEAR; URINE BILIRUBIN NEGATIVE (NEGATIVE); URINE BLOOD TRACE (NEGATIVE); URINE COLOR YELLOW; URINE GLUCOSE NEGATIVE (NEGATIVE); URINE KETONE NEGATIVE (NEGATIVE); URINE LEUKOCYTE ESTERASE NEGATIVE (NEGATIVE); URINE NITRATE NEGATIVE (NEGATIVE); URINE PROTEIN(semi-quant) 1+ mg/dL (NEGATIVE); URINE UROBILINOGEN NORMAL (NORMAL); URINE WBC 0-1 /hpf (0-3)
[2020-06-07 09:58] VITALS: BP 132/76
== END 2020-06-07 11:25 | disposition home or self-care (01) | DRG 641 ==
LOC: MED/SURG 15:44
PROVIDERS: Family Medicine; ADMIT Nurse Practitioner Primary Care
DX: E86.0 Dehydration (principal); N17.9 Acute kidney failure, unspecified; K92.2 Gastrointestinal hemorrhage, unspecified; E87.2 Acidosis; N18.9 Chronic kidney disease, unspecified; I12.9 Hypertensive chronic kidney disease with stage 1 through stage 4 chronic kidney disease, or unspecified chronic kidney disease; D63.1 Anemia in chronic kidney disease; I95.1 Orthostatic hypotension; J84.10 Pulmonary fibrosis, unspecified; K29.70 Gastritis, unspecified, without bleeding; K21.9 Gastro-esophageal reflux disease without esophagitis; G47.33 Obstructive sleep apnea (adult) (pediatric); Z79.82 Long term (current) use of aspirin; Z79.02 Long term (current) use of antithrombotics/antiplatelets; Z86.711 Personal history of pulmonary embolism; Z85.46 Personal history of malignant neoplasm of prostate; Z96.619 Presence of unspecified artificial shoulder joint; Z95.0 Presence of cardiac pacemaker
CPT/HCPCS: J7030

== ENCOUNTER 2020-06-09 19:19 | Emergency (ER) | payer MEDICARE, BC ==
[~2020-06-09] VITALS: Ht 185.4 cm; Wt 86.4 kg
[2020-06-09 20:15] LABS: HEMATOCRIT 33.6 % (42.0-52.0); HEMOGLOBIN 10.7 g/dL (13.5-18.0); MEAN CELL VOLUME 90 fl (78-100); MEAN CORPUSCULAR HEMOGLOBIN 29 pg (27-31); MEAN CORPUSCULAR HGB CONC 32 g/dL (33-37); MEAN PLATELET VOLUME 9.4 fl (7.4-10.4); PLATELET COUNT 213 K/mm3 (130-400); RED BLOOD COUNT 3.75 M/mm3 (4.20-5.60); RED CELL DISTRIBUTION WIDTH 16.2 % (11.5-14.5); WHITE BLOOD COUNT 10.7 K/mm3 (4.8-10.8)
[2020-06-09 20:27] LABS: ALBUMIN 3.2 g/dL (3.4-4.8); SODIUM 136 mmol/L (136-145)
[2020-06-09 20:28] LABS: CALCIUM 7.7 mg/dL (8.3-10.5)
[2020-06-09 20:29] LABS: GLUCOSE 104 mg/dL (75-110); TOTAL PROTEIN 6.1 g/dL (6.2-8.1)
[2020-06-09 20:30] LABS: CARBON DIOXIDE 20 mmol/L (23-31)
[2020-06-09 20:31] LABS: TOTAL BILIRUBIN 0.5 mg/dL (0.2-1.2)
[2020-06-09 20:34] LABS: AST-SGOT 29 U/L (5-34)
[2020-06-09 20:36] LABS: ALT/SGPT 23 U/L (0-55)
[2020-06-09 20:38] LABS: TROPONIN-I < 0.03 ng/mL (<0.030)
[2020-06-09 20:39] LABS: URINE APPEARANCE CLEAR; URINE BILIRUBIN NEGATIVE (NEGATIVE); URINE BLOOD NEGATIVE (NEGATIVE); URINE COLOR YELLOW; URINE GLUCOSE NEGATIVE (NEGATIVE); URINE KETONE NEGATIVE (NEGATIVE); URINE LEUKOCYTE ESTERASE NEGATIVE (NEGATIVE); URINE NITRATE NEGATIVE (NEGATIVE); URINE PROTEIN(semi-quant) TRACE mg/dL (NEGATIVE); URINE UROBILINOGEN NORMAL (NORMAL); URINE WBC 0-1 /hpf (0-3)
[2020-06-09 20:43] LABS: LYMPHOCYTE 9 % (20-51); MONOCYTE 13 % (3-10); NEUTROPHILS 74 % (42-75)
[2020-06-09 20:44] LABS: OVALOCYTES 1+
[2020-06-09 20:58] LABS: D-DIMER 6.34 mg/L FEU (0.15-0.50)
[2020-06-09 22:37] VITALS: BP 132/68
== END 2020-06-09 22:37 | disposition short-term general hospital (02) ==
LOC: ED 19:19
PROVIDERS: Nurse Practitioner Family
DX: I12.9 Hypertensive chronic kidney disease with stage 1 through stage 4 chronic kidney disease, or unspecified chronic kidney disease (principal); N18.9 Chronic kidney disease, unspecified; D63.1 Anemia in chronic kidney disease; K92.2 Gastrointestinal hemorrhage, unspecified; I25.2 Old myocardial infarction; R79.1 Abnormal coagulation profile; Z95.0 Presence of cardiac pacemaker; Z79.02 Long term (current) use of antithrombotics/antiplatelets; Z86.711 Personal history of pulmonary embolism; Z79.82 Long term (current) use of aspirin
CPT/HCPCS: J7030

== ENCOUNTER → 2020-10-02 | Outpatient (CLI) | payer MEDICARE, BC | LOC: LAB 09:32 | DX: I25.10 Atherosclerotic heart disease of native coronary artery without angina pectoris (principal); K90.9 Intestinal malabsorption, unspecified; E29.1 Testicular hypofunction ==

== ENCOUNTER 2020-11-02 08:30 | Outpatient (RCR) | payer MEDICARE, BC ==
[2020-10-02 09:39] LABS: HEMATOCRIT 40.2 % (42.0-52.0); HEMOGLOBIN 13.3 g/dL (13.5-18.0); MEAN CELL VOLUME 91 fl (78-100); MEAN CORPUSCULAR HEMOGLOBIN 30 pg (27-31); MEAN CORPUSCULAR HGB CONC 33 g/dL (33-37); MEAN PLATELET VOLUME 9.3 fl (7.4-10.4); PLATELET COUNT 209 K/mm3 (130-400); RED CELL DISTRIBUTION WIDTH 14.4 % (11.5-14.5); WHITE BLOOD COUNT 4.2 K/mm3 (4.8-10.8)
[2020-10-02 09:48] LABS: ALBUMIN 4.1 g/dL (3.4-4.8); POTASSIUM 3.9 mmol/L (3.5-5.1)
[2020-10-02 09:49] LABS: CALCIUM 9.2 mg/dL (8.3-10.5)
[2020-10-02 09:50] LABS: TOTAL PROTEIN 7.3 g/dL (6.2-8.1)
[2020-10-02 09:52] LABS: TOTAL BILIRUBIN 0.9 mg/dL (0.2-1.2)
[2020-10-03 00:15] LABS: TESTOSTERONE 39 ng/dL (221-716)
[2020-10-05 13:04] LABS: LYMPHOCYTE 15 % (20-51); MONOCYTE 17 % (3-10); NEUTROPHILS 59 % (42-75)
== END 2020-11-22 ==
LOC: SPEECH
PROVIDERS: Internal Medicine
DX: I63.9 Cerebral infarction, unspecified (principal)

== ENCOUNTER → 2020-12-23 | Outpatient (CLI) | payer MEDICARE, BC ==
[2020-12-23 12:48] LABS: ALBUMIN 4.1 g/dL (3.4-4.8)
[2020-12-23 12:49] LABS: POTASSIUM 4.2 mmol/L (3.5-5.1)
[2020-12-23 12:50] LABS: CALCIUM 8.6 mg/dL (8.3-10.5)
== END ==
LOC: LAB 12:16
PROVIDERS: Internal Medicine
DX: I12.9 Hypertensive chronic kidney disease with stage 1 through stage 4 chronic kidney disease, or unspecified chronic kidney disease (principal); N18.4 Chronic kidney disease, stage 4 (severe)

== ENCOUNTER → 2021-02-08 | Outpatient (CLI) | payer MEDICARE, BC ==
[~2021-02-08] MED LIST changes: +IRON90 MG PO; +PREGABALIN50 MG PO
[2021-02-08 08:58] LABS: HEMATOCRIT 36.5 % (42.0-52.0); HEMOGLOBIN 11.4 g/dL (13.5-18.0); MEAN CELL VOLUME 91 fl (78-100); MEAN CORPUSCULAR HEMOGLOBIN 29 pg (27-31); MEAN CORPUSCULAR HGB CONC 31 g/dL (33-37); MEAN PLATELET VOLUME 9.1 fl (7.4-10.4); PLATELET COUNT 196 K/mm3 (130-400); RED CELL DISTRIBUTION WIDTH 15.9 % (11.5-14.5); WHITE BLOOD COUNT 4.2 K/mm3 (4.8-10.8)
[2021-02-08 09:11] LABS: ALBUMIN 3.6 g/dL (3.4-4.8); POTASSIUM 4.3 mmol/L (3.5-5.1)
[2021-02-08 09:12] LABS: CALCIUM 8.3 mg/dL (8.3-10.5)
[2021-02-08 09:13] LABS: TOTAL PROTEIN 6.1 g/dL (6.2-8.1)
[2021-02-08 09:15] LABS: TOTAL BILIRUBIN 0.5 mg/dL (0.2-1.2)
[2021-02-08 10:12] LABS: LYMPHOCYTE 20 % (20-51); MONOCYTE 12 % (3-10); NEUTROPHILS 60 % (42-75)
== END ==
LOC: LAB 08:33
PROVIDERS: Internal Medicine
DX: I25.10 Atherosclerotic heart disease of native coronary artery without angina pectoris (principal); K90.9 Intestinal malabsorption, unspecified; E29.1 Testicular hypofunction

== ENCOUNTER 2021-06-07 14:32 | Emergency (ER) | payer MEDICARE, BC ==
[~2021-06-07 14:32] MED LIST changes: -IRON90 MG PO; -PREGABALIN50 MG PO
[2021-06-07] MEDS ORDERED: PREGABALIN50 MG PO (14:44)
[2021-06-07] MEDS ORDERED: IRON90 MG PO (14:44)
[2021-06-07 15:11] LABS: BASO # 0.04 (0.02-0.10); EOS # 0.09 (0.04-0.40); EOS % 1.1 % (0.0-4.0); HEMATOCRIT 42.8 % (42.0-52.0); HEMOGLOBIN 14.1 g/dL (13.5-18.0); LYMPH# 1.12 (1.50-4.00); MEAN CELL VOLUME 96 fl (78-100); MEAN CORPUSCULAR HEMOGLOBIN 32 pg (27-31); MEAN CORPUSCULAR HGB CONC 33 g/dL (33-37); MEAN PLATELET VOLUME 10.3 fl (7.4-10.4); NEU # 6.06 (1.40-6.50); PLATELET COUNT 160 K/mm3 (130-400); RED BLOOD COUNT 4.48 M/mm3 (4.20-5.60); RED CELL DISTRIBUTION WIDTH 14.2 % (11.5-14.5); WHITE BLOOD COUNT 8.4 K/mm3 (4.8-10.8)
[2021-06-07 15:22] LABS: ALBUMIN 3.6 g/dL (3.4-4.8); POTASSIUM 4.9 mmol/L (3.5-5.1)
[2021-06-07 15:23] LABS: CALCIUM 8.6 mg/dL (8.3-10.5)
[2021-06-07 15:25] LABS: TOTAL PROTEIN 6.2 g/dL (6.2-8.1)
[2021-06-07 16:40] LABS: URINE WBC 0 /hpf (0-3)
[2021-06-07 17:35] VITALS: BP 127/57
[2021-06-07 17:58] LABS: URINE APPEARANCE CLEAR; URINE BILIRUBIN NEGATIVE (NEGATIVE); URINE BLOOD NEGATIVE (NEGATIVE); URINE COLOR YELLOW; URINE GLUCOSE NEGATIVE (NEGATIVE); URINE KETONE TRACE (NEGATIVE); URINE LEUKOCYTE ESTERASE NEGATIVE (NEGATIVE); URINE MUCUS PRESENT (NOT PRESENT); URINE NITRATE NEGATIVE (NEGATIVE); URINE PROTEIN(semi-quant) TRACE mg/dL (NEGATIVE); URINE UROBILINOGEN NORMAL (NORMAL)
== END 2021-06-07 17:18 | disposition home or self-care (01) ==
LOC: ED 14:32
PROVIDERS: Nurse Practitioner
DX: I12.9 Hypertensive chronic kidney disease with stage 1 through stage 4 chronic kidney disease, or unspecified chronic kidney disease (principal); E86.0 Dehydration; R53.81 Other malaise; I25.2 Old myocardial infarction; D63.1 Anemia in chronic kidney disease; Z86.711 Personal history of pulmonary embolism; Z79.02 Long term (current) use of antithrombotics/antiplatelets
CPT/HCPCS: J2405; J7030

== ENCOUNTER → 2021-06-14 | Outpatient (CLI) | payer MEDICARE, BC ==
[~2021-06-14] MED LIST changes: +IRON90 MG PO; +PREGABALIN50 MG PO
[2021-06-14 10:09] LABS: BASO # 0.05 (0.02-0.10); EOS # 0.24 (0.04-0.40); EOS % 3.7 % (0.0-4.0); HEMATOCRIT 33.5 % (42.0-52.0); LYMPH# 0.72 (1.50-4.00); MEAN CELL VOLUME 97 fl (78-100); MEAN CORPUSCULAR HEMOGLOBIN 32 pg (27-31); MEAN CORPUSCULAR HGB CONC 33 g/dL (33-37); MEAN PLATELET VOLUME 9.7 fl (7.4-10.4); NEU # 4.72 (1.40-6.50); PLATELET COUNT 176 K/mm3 (130-400); RED BLOOD COUNT 3.44 M/mm3 (4.20-5.60); RED CELL DISTRIBUTION WIDTH 14.3 % (11.5-14.5); WHITE BLOOD COUNT 6.4 K/mm3 (4.8-10.8)
[2021-06-14 10:38] LABS: ALBUMIN 3.6 g/dL (3.4-4.8)
[2021-06-14 10:39] LABS: POTASSIUM 3.9 mmol/L (3.5-5.1)
[2021-06-14 10:40] LABS: CALCIUM 8.5 mg/dL (8.3-10.5)
[2021-06-14 10:43] LABS: TOTAL BILIRUBIN 0.5 mg/dL (0.2-1.2)
== END ==
LOC: LAB 09:57
PROVIDERS: Internal Medicine
DX: I10 Essential (primary) hypertension (principal)

== ENCOUNTER → 2021-07-01 | Outpatient (CLI) | payer MEDICARE, BC ==
[2021-07-01 09:41] LABS: BASO # 0.02 (0.02-0.10); EOS # 0.29 (0.04-0.40); EOS % 4.5 % (0.0-4.0); HEMATOCRIT 34.6 % (42.0-52.0); LYMPH# 0.91 (1.50-4.00); MEAN CELL VOLUME 99 fl (78-100); MEAN CORPUSCULAR HEMOGLOBIN 31 pg (27-31); MEAN CORPUSCULAR HGB CONC 32 g/dL (33-37); MEAN PLATELET VOLUME 10.3 fl (7.4-10.4); MONO # 0.73 (0.20-0.80); NEU # 4.46 (1.40-6.50); PLATELET COUNT 167 K/mm3 (130-400); WHITE BLOOD COUNT 6.4 K/mm3 (4.8-10.8)
[2021-07-01 09:43] LABS: ALBUMIN 3.6 g/dL (3.4-4.8)
[2021-07-01 09:44] LABS: POTASSIUM 4.4 mmol/L (3.5-5.1)
[2021-07-01 09:45] LABS: CALCIUM 8.6 mg/dL (8.3-10.5)
[2021-07-01 09:46] LABS: TOTAL PROTEIN 6.2 g/dL (6.2-8.1)
[2021-07-01 09:48] LABS: TOTAL BILIRUBIN 0.8 mg/dL (0.2-1.2)
== END ==
LOC: LAB 09:14
PROVIDERS: Internal Medicine
DX: I10 Essential (primary) hypertension (principal)

== ENCOUNTER → 2021-07-30 | Outpatient (CLI) | payer MEDICARE, BC ==
[2021-07-30 11:32] LABS: ALBUMIN 3.7 g/dL (3.4-4.8); POTASSIUM 4.4 mmol/L (3.5-5.1)
[2021-07-30 11:34] LABS: TOTAL PROTEIN 6.5 g/dL (6.2-8.1)
[2021-07-30 11:36] LABS: TOTAL BILIRUBIN 0.7 mg/dL (0.2-1.2)
[2021-07-30 11:49] LABS: BASO # 0.06 (0.02-0.10); EOS # 0.25 (0.04-0.40); EOS % 5.7 % (0.0-4.0); HEMATOCRIT 34.6 % (42.0-52.0); HEMOGLOBIN 11.1 g/dL (13.5-18.0); LYMPH# 1.02 (1.50-4.00); MEAN CELL VOLUME 96 fl (78-100); MEAN CORPUSCULAR HEMOGLOBIN 31 pg (27-31); MEAN CORPUSCULAR HGB CONC 32 g/dL (33-37); MEAN PLATELET VOLUME 10.3 fl (7.4-10.4); MONO # 0.75 (0.20-0.80); NEU # 2.31 (1.40-6.50); PLATELET COUNT 183 K/mm3 (130-400); RED CELL DISTRIBUTION WIDTH 13.9 % (11.5-14.5); WHITE BLOOD COUNT 4.4 K/mm3 (4.8-10.8)
== END ==
LOC: LAB 10:55
PROVIDERS: Internal Medicine
DX: I25.10 Atherosclerotic heart disease of native coronary artery without angina pectoris (principal); K90.9 Intestinal malabsorption, unspecified; I10 Essential (primary) hypertension

== ENCOUNTER → 2021-08-30 | Outpatient (CLI) | payer MEDICARE, BC ==
[2021-08-30 14:15] LABS: ALBUMIN 3.7 g/dL (3.4-4.8); POTASSIUM 3.8 mmol/L (3.5-5.1)
[2021-08-30 14:17] LABS: CALCIUM 8.4 mg/dL (8.3-10.5)
== END ==
LOC: LAB 13:46
PROVIDERS: Internal Medicine Nephrology
DX: I12.9 Hypertensive chronic kidney disease with stage 1 through stage 4 chronic kidney disease, or unspecified chronic kidney disease (principal); N18.4 Chronic kidney disease, stage 4 (severe)

== ENCOUNTER → 2021-09-01 | Outpatient (CLI) | payer MEDICARE, BC | LOC: LAB 13:33 | PROVIDERS: Internal Medicine Nephrology | DX: I12.9 Hypertensive chronic kidney disease with stage 1 through stage 4 chronic kidney disease, or unspecified chronic kidney disease (principal); N18.4 Chronic kidney disease, stage 4 (severe) ==

== ENCOUNTER → 2021-09-17 | Outpatient (CLI) | payer MEDICARE, BC ==
[2021-09-17 09:06] LABS: HEMATOCRIT 42.4 % (42.0-52.0); HEMOGLOBIN 13.2 g/dL (13.5-18.0); MEAN PLATELET VOLUME 10.1 fl (7.4-10.4); RED BLOOD COUNT 4.36 M/mm3 (4.20-5.60); RED CELL DISTRIBUTION WIDTH 15.7 % (11.5-14.5); WHITE BLOOD COUNT 3.9 K/mm3 (4.8-10.8)
[2021-09-17 09:09] LABS: ALBUMIN 3.6 g/dL (3.4-4.8)
[2021-09-17 09:10] LABS: POTASSIUM 4.3 mmol/L (3.5-5.1)
[2021-09-17 09:11] LABS: CALCIUM 8.3 mg/dL (8.3-10.5)
[2021-09-17 09:12] LABS: TOTAL PROTEIN 6.4 g/dL (6.2-8.1)
[2021-09-17 09:14] LABS: TOTAL BILIRUBIN 0.8 mg/dL (0.2-1.2)
[2021-09-17 23:59] LABS: FOLATE (FOLIC ACID) 6.6 ng/mL (2.0-20.0)
[2021-09-18 00:04] LABS: SYPHILIS AB SCREEN w REFLEX Negative (Negative)
[2021-09-22 10:32] LABS: VITAMIN E 6.4 mg/L (())
[2021-09-22 12:02] LABS: A/G RATIO (PEP) 1.15 (()); BETA GLOBULINS (PEP) 0.9 g/dL (0.7-1.2)
[2021-09-23 08:04] LABS: VITAMIN B1 105 nmol/L (70-180)
== END ==
LOC: LAB 08:27
PROVIDERS: Psychiatry & Neurology Neurology
DX: G60.9 Hereditary and idiopathic neuropathy, unspecified (principal); G20 Parkinson's disease; R27.0 Ataxia, unspecified; Z86.73 Personal history of transient ischemic attack (TIA), and cerebral infarction without residual deficits

== ENCOUNTER → 2022-01-13 | Outpatient (CLI) | payer MEDICARE, BC ==
[2022-01-13 09:41] LABS: BASO # 0.04 K/mm3 (0.02-0.10); EOS # 0.23 K/mm3 (0.04-0.40); EOS % 4.9 % (0.0-4.0); HEMATOCRIT 43.9 % (42.0-52.0); HEMOGLOBIN 14.7 g/dL (13.5-18.0); LYMPH# 0.65 K/mm3 (1.50-4.00); MEAN CELL VOLUME 98 fl (78-100); MEAN CORPUSCULAR HEMOGLOBIN 33 pg (27-31); MEAN CORPUSCULAR HGB CONC 34 g/dL (33-37); MEAN PLATELET VOLUME 10.3 fl (7.4-10.4); MONO # 0.56 K/mm3 (0.20-0.80); NEU # 3.26 K/mm3 (1.40-6.50); PLATELET COUNT 134 K/mm3 (130-400); RED CELL DISTRIBUTION WIDTH 14.7 % (11.5-14.5); WHITE BLOOD COUNT 4.7 K/mm3 (4.8-10.8)
[2022-01-13 09:49] LABS: POTASSIUM 3.8 mmol/L (3.5-5.1); SODIUM 142 mmol/L (136-145)
[2022-01-13 09:50] LABS: ALBUMIN 3.8 g/dL (3.4-4.8)
[2022-01-13 09:51] LABS: CALCIUM 8.5 mg/dL (8.3-10.5)
[2022-01-13 09:52] LABS: GLUCOSE 144 mg/dL (75-110); TOTAL PROTEIN 6.3 g/dL (6.2-8.1)
[2022-01-13 09:53] LABS: CARBON DIOXIDE 26 mmol/L (23-31)
[2022-01-13 09:54] LABS: TOTAL BILIRUBIN 1.2 mg/dL (0.2-1.2)
[2022-01-13 09:57] LABS: AST-SGOT 21 U/L (5-34)
[2022-01-13 11:37] LABS: ALT/SGPT < 6 U/L (0-55)
[2022-01-13 22:12] LABS: TESTOSTERONE 397 ng/dL (221-716)
== END ==
LOC: LAB 09:24
PROVIDERS: Internal Medicine
DX: Z12.5 Encounter for screening for malignant neoplasm of prostate (principal); I25.10 Atherosclerotic heart disease of native coronary artery without angina pectoris; I10 Essential (primary) hypertension; K90.9 Intestinal malabsorption, unspecified; K25.4 Chronic or unspecified gastric ulcer with hemorrhage; M48.061 Spinal stenosis, lumbar region without neurogenic claudication; G62.9 Polyneuropathy, unspecified; E29.1 Testicular hypofunction

== ENCOUNTER → 2022-06-07 | Outpatient (CLI) | payer MEDICARE, BC ==
[~2022-06-07] MED LIST changes: +CARBIDOPA/LEVODOPA PO; +DIGOXIN125 MCG PO; +NATURAL IRON65 MG PO
[2022-06-07 09:41] LABS: BASO # 0.03 K/mm3 (0.02-0.10); EOS # 0.29 K/mm3 (0.04-0.40); EOS % 5.6 % (0.0-4.0); HEMATOCRIT 44.6 % (42.0-52.0); HEMOGLOBIN 14.7 g/dL (13.5-18.0); LYMPH# 0.77 K/mm3 (1.50-4.00); MEAN CELL VOLUME 101 fl (78-100); MEAN CORPUSCULAR HEMOGLOBIN 33 pg (27-31); MEAN CORPUSCULAR HGB CONC 33 g/dL (33-37); MEAN PLATELET VOLUME 9.9 fl (7.4-10.4); NEU # 3.49 K/mm3 (1.40-6.50); PLATELET COUNT 120 K/mm3 (130-400); RED CELL DISTRIBUTION WIDTH 13.9 % (11.5-14.5); WHITE BLOOD COUNT 5.2 K/mm3 (4.8-10.8)
[2022-06-07 09:50] LABS: ALBUMIN 3.8 g/dL (3.4-4.8); POTASSIUM 4.4 mmol/L (3.5-5.1)
[2022-06-07 09:51] LABS: CALCIUM 8.3 mg/dL (8.3-10.5)
[2022-06-07 09:53] LABS: TOTAL PROTEIN 6.8 g/dL (6.2-8.1)
[2022-06-07 09:55] LABS: TOTAL BILIRUBIN 1.5 mg/dL (0.2-1.2)
[2022-06-07 10:00] LABS: MAGNESIUM 2.04 mg/dL (1.60-2.60)
[2022-06-07 22:20] LABS: TESTOSTERONE 236 ng/dL (221-716)
== END ==
LOC: LAB 09:05
PROVIDERS: Internal Medicine
DX: I10 Essential (primary) hypertension (principal); I25.10 Atherosclerotic heart disease of native coronary artery without angina pectoris; K90.9 Intestinal malabsorption, unspecified; K25.4 Chronic or unspecified gastric ulcer with hemorrhage; M48.061 Spinal stenosis, lumbar region without neurogenic claudication; E29.1 Testicular hypofunction; G62.9 Polyneuropathy, unspecified; G20 Parkinson's disease

== ENCOUNTER → 2022-06-09 | Outpatient (CLI) | payer MEDICARE, BC | LOC: RAD 08:03 | DX: N28.1 Cyst of kidney, acquired (principal) ==

== ENCOUNTER 2022-06-12 20:21 | Emergency (ER) | payer MEDICARE, BC ==
[~2022-06-12] VITALS: Ht 188 cm; Wt 79.1 kg
[~2022-06-12 20:21] MED LIST changes: -CARBIDOPA/LEVODOPA PO; -DIGOXIN125 MCG PO; -NATURAL IRON65 MG PO
[2022-06-12] MEDS ORDERED: NATURAL IRON65 MG PO (21:07)
[2022-06-12] MEDS ORDERED: DIGOXIN125 MCG PO (21:12)
[2022-06-12] MEDS ORDERED: CARBIDOPA/LEVODOPA PO (21:12)
[2022-06-12 21:32] LABS: HEMATOCRIT 41.5 % (42.0-52.0); HEMOGLOBIN 13.6 g/dL (13.5-18.0); MEAN CELL VOLUME 101 fl (78-100); MEAN CORPUSCULAR HEMOGLOBIN 33 pg (27-31); MEAN CORPUSCULAR HGB CONC 33 g/dL (33-37); MEAN PLATELET VOLUME 10.6 fl (7.4-10.4); PLATELET COUNT 95 K/mm3 (130-400); RED BLOOD COUNT 4.11 M/mm3 (4.20-5.60); RED CELL DISTRIBUTION WIDTH 13.4 % (11.5-14.5); WHITE BLOOD COUNT 5.2 K/mm3 (4.8-10.8)
[2022-06-12 21:52] LABS: ALBUMIN 3.6 g/dL (3.4-4.8); POTASSIUM 4.3 mmol/L (3.5-5.1)
[2022-06-12 21:53] LABS: CALCIUM 8.2 mg/dL (8.3-10.5)
[2022-06-12 21:54] LABS: TOTAL PROTEIN 6.1 g/dL (6.2-8.1)
[2022-06-12 21:56] LABS: TOTAL BILIRUBIN 1.5 mg/dL (0.2-1.2)
[2022-06-12 22:04] LABS: LYMPHOCYTE 9 % (20-51); MONOCYTE 11 % (3-10); NEUTROPHILS 77 % (42-75)
[2022-06-12 22:53] VITALS: BP 134/68
== END 2022-06-12 22:54 | disposition home or self-care (01) ==
LOC: ED 20:21
PROVIDERS: Family Medicine
DX: U07.1 COVID-19 (principal); I12.9 Hypertensive chronic kidney disease with stage 1 through stage 4 chronic kidney disease, or unspecified chronic kidney disease; N18.9 Chronic kidney disease, unspecified

== ENCOUNTER → 2022-06-13 | Outpatient (CLI) | payer MEDICARE, BC ==
[~2022-06-13] VITALS: Ht 188 cm; Wt 79.1 kg
[~2022-06-13] MED LIST changes: +CARBIDOPA/LEVODOPA PO; +DIGOXIN125 MCG PO; +NATURAL IRON65 MG PO
[2022-06-13 17:24] VITALS: BP 143/82
[2022-06-13 17:30] VITALS: BP 145/82
[2022-06-13 17:45] VITALS: BP 140/79
[2022-06-13 18:00] VITALS: BP 141/78
[2022-06-13 18:15] VITALS: BP 143/82
== END ==
LOC: AMSURD 17:02
DX: U07.1 COVID-19 (principal)
CPT/HCPCS: M0222

== ENCOUNTER → 2023-01-02 | Outpatient (CLI) | payer MEDICARE, BC ==
[2023-01-02 10:13] LABS: BASO # 0.02 K/mm3 (0.02-0.10); EOS # 0.16 K/mm3 (0.04-0.40); EOS % 1.8 % (0.0-4.0); HEMATOCRIT 43.9 % (42.0-52.0); HEMOGLOBIN 14.6 g/dL (13.5-18.0); LYMPH# 0.63 K/mm3 (1.50-4.00); MEAN CELL VOLUME 101 fl (78-100); MEAN CORPUSCULAR HEMOGLOBIN 33 pg (27-31); MEAN CORPUSCULAR HGB CONC 33 g/dL (33-37); MEAN PLATELET VOLUME 10.5 fl (7.4-10.4); MONO # 1.08 K/mm3 (0.20-0.80); NEU # 6.86 K/mm3 (1.40-6.50); PLATELET COUNT 141 K/mm3 (130-400); RED BLOOD COUNT 4.37 M/mm3 (4.20-5.60); RED CELL DISTRIBUTION WIDTH 13.1 % (11.5-14.5); WHITE BLOOD COUNT 8.8 K/mm3 (4.8-10.8)
[2023-01-02 10:17] LABS: ALBUMIN 3.6 g/dL (3.4-4.8); POTASSIUM 3.8 mmol/L (3.5-5.1)
[2023-01-02 10:18] LABS: CALCIUM 8.8 mg/dL (8.3-10.5)
[2023-01-02 10:19] LABS: TOTAL PROTEIN 5.9 g/dL (6.2-8.1)
[2023-01-02 10:21] LABS: TOTAL BILIRUBIN 1.6 mg/dL (0.2-1.2)
== END ==
LOC: LAB 09:02
PROVIDERS: Nurse Practitioner Family
DX: S46.911A Strain of unspecified muscle, fascia and tendon at shoulder and upper arm level, right arm, initial encounter (principal); M79.602 Pain in left arm; X58.XXXA Exposure to other specified factors, initial encounter

== ENCOUNTER → 2023-01-23 | Outpatient (CLI) | payer MEDICARE, BC ==
[2023-01-23 08:47] LABS: PROTHROMBIN TIME 11.4 SECONDS (9.0-12.0)
== END ==
LOC: LAB 08:08
PROVIDERS: Nurse Practitioner Family
DX: M79.602 Pain in left arm (principal)

== ENCOUNTER 2023-07-12 10:53 | Outpatient (RCR) | payer MEDICARE, BC | END 2023-07-20 | disposition home or self-care (01) | LOC: PT | DX: M54.6 Pain in thoracic spine (principal) ==

== ENCOUNTER → 2023-08-21 | Outpatient (CLI) | payer MEDICARE, BC ==
[2023-08-21 12:02] LABS: ALBUMIN 4.2 g/dL (3.4-4.8)
[2023-08-21 12:05] LABS: TOTAL PROTEIN 7.1 g/dL (6.2-8.1)
[2023-08-21 12:07] LABS: TOTAL BILIRUBIN 1.8 mg/dL (0.2-1.2)
[2023-08-21 12:10] LABS: DIRECT BILIRUBIN 0.7 mg/dL (0.0-0.5)
== END ==
LOC: LAB 11:42
PROVIDERS: Internal Medicine
DX: C61 Malignant neoplasm of prostate (principal); R19.7 Diarrhea, unspecified; N28.9 Disorder of kidney and ureter, unspecified; N28.1 Cyst of kidney, acquired; G62.9 Polyneuropathy, unspecified; L12.0 Bullous pemphigoid; I69.359 Hemiplegia and hemiparesis following cerebral infarction affecting unspecified side; I12.9 Hypertensive chronic kidney disease with stage 1 through stage 4 chronic kidney disease, or unspecified chronic kidney disease; N18.30 Chronic kidney disease, stage 3 unspecified; I25.10 Atherosclerotic heart disease of native coronary artery without angina pectoris; K25.4 Chronic or unspecified gastric ulcer with hemorrhage; K21.01 Gastro-esophageal reflux disease with esophagitis, with bleeding; K90.9 Intestinal malabsorption, unspecified; E29.1 Testicular hypofunction; E78.2 Mixed hyperlipidemia; N04.20 Nephrotic syndrome with diffuse membranous glomerulonephritis, unspecified; G47.33 Obstructive sleep apnea (adult) (pediatric); M48.061 Spinal stenosis, lumbar region without neurogenic claudication; I63.89 Other cerebral infarction; J84.112 Idiopathic pulmonary fibrosis

== ENCOUNTER → 2023-11-21 | Outpatient (CLI) | payer MEDICARE, BC ==
[2023-11-21 16:05] LABS: BASO # 0.02 K/mm3 (0.02-0.10); EOS # 0.29 K/mm3 (0.04-0.40); EOS % 4.4 % (0.0-4.0); HEMOGLOBIN 15.9 g/dL (13.5-18.0); LYMPH# 0.85 K/mm3 (1.50-4.00); MEAN CELL VOLUME 106 fl (78-100); MEAN CORPUSCULAR HEMOGLOBIN 35 pg (27-31); MEAN CORPUSCULAR HGB CONC 33 g/dL (33-37); MEAN PLATELET VOLUME 9.5 fl (7.4-10.4); MONO # 0.68 K/mm3 (0.20-0.80); NEU # 4.79 K/mm3 (1.40-6.50); PLATELET COUNT 159 K/mm3 (130-400); RED BLOOD COUNT 4.54 M/mm3 (4.20-5.60); RED CELL DISTRIBUTION WIDTH 13.2 % (11.5-14.5); WHITE BLOOD COUNT 6.6 K/mm3 (4.8-10.8)
[2023-11-21 16:09] LABS: ALBUMIN 3.8 g/dL (3.4-4.8)
[2023-11-21 16:11] LABS: CALCIUM 8.9 mg/dL (8.3-10.5)
[2023-11-21 16:12] LABS: TOTAL PROTEIN 6.4 g/dL (6.2-8.1)
[2023-11-21 16:14] LABS: TOTAL BILIRUBIN 0.9 mg/dL (0.2-1.2)
[2023-11-21 16:18] LABS: MAGNESIUM 1.7 mg/dL (1.60-2.60)
== END ==
LOC: LAB 15:47
PROVIDERS: Nurse Practitioner Family
DX: R25.1 Tremor, unspecified (principal)

== ENCOUNTER 2023-12-14 13:53 | Outpatient (RCR) | payer MEDICARE, BC ==
[2023-11-30 09:03] VITALS: BP 146/87
[~2023-12-14] VITALS: Ht 188 cm; Wt 79.1 kg
[~2023-12-14 13:53] MED LIST changes: +Testosterone Cyp in Oil 200 MG/ML 1 ML VIAL IM ONE
[2023-12-14] MEDS ORDERED: Testosterone Cyp in Oil 200 MG/ML 1 ML VIAL IM ONE (14:15)
== END 2023-12-20 | disposition home or self-care (01) ==
LOC: AMSURD
DX: E29.1 Testicular hypofunction (principal)
CPT/HCPCS: J1071

== ENCOUNTER 2024-01-12 10:51 | Outpatient (RCR) | payer MEDICARE, BC ==
[2023-12-28 08:58] VITALS: BP 151/117
[~2024-01-12] VITALS: Ht 188 cm; Wt 79.1 kg
[2024-01-12] MEDS ORDERED: Testosterone Cyp in Oil 200 MG/ML 1 ML VIAL IM ONE (11:15)
[2024-01-12 11:44] VITALS: BP 98/65
== END 2024-01-18 | disposition home or self-care (01) ==
LOC: AMSURD
DX: E29.1 Testicular hypofunction (principal)
CPT/HCPCS: J1071

== ENCOUNTER → 2024-02-09 | Outpatient (CLI) | payer MEDICARE, BC ==
[~2024-02-09] MED LIST changes: -Testosterone Cyp in Oil 200 MG/ML 1 ML VIAL IM ONE
[2024-02-09 09:18] LABS: ALBUMIN 3.8 g/dL (3.4-4.8)
[2024-02-09 09:19] LABS: BASO # 0.01 K/mm3 (0.02-0.10); EOS % 3.6 % (0.0-4.0); HEMATOCRIT 47.3 % (42.0-52.0); HEMOGLOBIN 15.7 g/dL (13.5-18.0); MEAN CELL VOLUME 102 fl (78-100); MEAN CORPUSCULAR HEMOGLOBIN 34 pg (27-31); MEAN CORPUSCULAR HGB CONC 33 g/dL (33-37); MEAN PLATELET VOLUME 9.4 fl (7.4-10.4); MONO # 0.71 K/mm3 (0.20-0.80); NEU # 3.62 K/mm3 (1.40-6.50); PLATELET COUNT 167 K/mm3 (130-400); RED BLOOD COUNT 4.62 M/mm3 (4.20-5.60); RED CELL DISTRIBUTION WIDTH 13.6 % (11.5-14.5); SODIUM 138 mmol/L (136-145); WHITE BLOOD COUNT 5.6 K/mm3 (4.8-10.8)
[2024-02-09 09:20] LABS: CALCIUM 8.6 mg/dL (8.3-10.5)
[2024-02-09 09:21] LABS: GLUCOSE 105 mg/dL (75-110); TOTAL PROTEIN 6.4 g/dL (6.2-8.1)
[2024-02-09 09:22] LABS: CARBON DIOXIDE 25 mmol/L (23-31)
[2024-02-09 09:23] LABS: TOTAL BILIRUBIN 1.7 mg/dL (0.2-1.2)
[2024-02-09 09:26] LABS: AST-SGOT 11 U/L (5-34)
[2024-02-09 09:28] LABS: MAGNESIUM 1.76 mg/dL (1.60-2.60)
[2024-02-09 09:35] LABS: ALT/SGPT < 6 U/L (0-55)
[2024-02-09 09:46] LABS: URINE APPEARANCE CLEAR (CLEAR); URINE BILIRUBIN NEGATIVE (NEGATIVE); URINE BLOOD NEGATIVE (NEGATIVE); URINE COLOR YELLOW (YELLOW); URINE GLUCOSE NEGATIVE (NEGATIVE); URINE KETONE NEGATIVE (NEGATIVE); URINE LEUKOCYTE ESTERASE NEGATIVE (NEGATIVE); URINE NITRATE NEGATIVE (NEGATIVE); URINE PROTEIN(semi-quant) 1+ (NEGATIVE)
[2024-02-09 09:47] LABS: URINE MUCUS PRESENT (NOT PRESENT)
== END ==
LOC: LAB 08:34
PROVIDERS: Internal Medicine
DX: I12.9 Hypertensive chronic kidney disease with stage 1 through stage 4 chronic kidney disease, or unspecified chronic kidney disease (principal); N18.4 Chronic kidney disease, stage 4 (severe)

== ENCOUNTER 2024-04-02 08:51 | Outpatient (RCR) | payer MEDICARE, BC ==
[~2024-04-02] VITALS: Ht 188 cm; Wt 79.1 kg
[2024-04-02 09:05] VITALS: BP 134/94
[2024-04-02] MEDS ORDERED: Testosterone Cyp in Oil 200 MG/ML 1 ML VIAL IM ONE (09:15)
[2024-04-16] MEDS ORDERED: Testosterone Cyp in Oil 200 MG/ML 1 ML VIAL IM ONE (09:20)
--- NOTE | 2024-05-31 11:59 | NUR ---
Downtime: An Electronic Health Record (EHR) downtime event occurred during this patient's care. For legal medical record information generated during the downtime period, please reference the patient's legal medical record. Paper or scanned documentation has been incorporated into the legal medical record which is maintained in accordance with Health Information Management (HIM) and record retention policies.
== END 2024-04-19 | disposition home or self-care (01) ==
LOC: AMSURD
DX: E29.1 Testicular hypofunction (principal)
CPT/HCPCS: J1071

== ENCOUNTER 2024-04-10 21:25 | Emergency (ER) | payer MEDICARE, BC | END 2024-04-10 22:35 | disposition home or self-care (01) | LOC: ED 21:25 | DX: R06.6 Hiccough (principal) | CPT/HCPCS: J3230 ==

== ENCOUNTER 2024-05-14 08:44 | Outpatient (RCR) | payer MEDICARE, BC ==
[2024-05-01 15:08] VITALS: BP 141/103
[~2024-05-14] VITALS: Ht 188 cm; Wt 79.1 kg
[~2024-05-14 08:44] MED LIST changes: +Testosterone Cyp in Oil 200 MG/ML 1 ML VIAL IM ONE
[2024-05-14 09:04] VITALS: BP 135/86
[2024-05-14] MEDS ORDERED: Testosterone Cyp in Oil 200 MG/ML 1 ML VIAL IM ONE (09:30)
[2024-05-14] MEDS ORDERED: ISOSORBIDE MONO60 M2 PO (20:42)
[2024-05-14] MEDS ORDERED: NORTRIPTYLINE H25 M1 PO (20:43)
[2024-05-14] MEDS ORDERED: ARICEPT5 M1 PO (20:43)
[2024-05-14] MEDS ORDERED: THORAZINE 225 MG/TAB PO (20:43)
[2024-05-14] MEDS ORDERED: VITAMIN D325 MC4 PO (20:44)
[2024-05-14] MEDS ORDERED: FOLIC ACID1 MG PO (20:44)
[2024-05-14] MEDS ORDERED: DOFETILIDE125 MCG PO (20:44)
[2024-05-14] MEDS ORDERED: TOPROL XL 25MG25 MG PO (20:44)
[2024-05-14] MEDS ORDERED: DICLOFENAC SODIUM3% TP (20:45)
[2024-05-14] MEDS ORDERED: B-1100 M1 PO (20:45)
== END 2024-05-19 ==
LOC: AMSURD
DX: E29.1 Testicular hypofunction (principal)
CPT/HCPCS: J1071

== ENCOUNTER 2024-06-19 14:53 | Emergency (ER) | payer MEDICARE, BC ==
[~2024-06-19] VITALS: Ht 182.9 cm; Wt 69.1 kg
[~2024-06-19 14:53] MED LIST changes: +ARICEPT5 M1 PO; +B-1100 M1 PO; +DICLOFENAC SODIUM3% TP; +DOFETILIDE125 MCG PO; +FOLIC ACID1 MG PO; +ISOSORBIDE MONO60 M2 PO; +NORTRIPTYLINE H25 M1 PO; +THORAZINE 225 MG/TAB PO; +TOPROL XL 25MG25 MG PO; -Testosterone Cyp in Oil 200 MG/ML 1 ML VIAL IM ONE; +VITAMIN D325 MC4 PO
[2024-06-19 15:55] LABS: BASO # 0.03 K/mm3 (0.02-0.10); EOS # 0.13 K/mm3 (0.04-0.40); EOS % 2.1 % (0.0-4.0); HEMATOCRIT 50.4 % (42.0-52.0); LYMPH# 0.73 K/mm3 (1.50-4.00); MEAN CELL VOLUME 103 fl (78-100); MEAN CORPUSCULAR HEMOGLOBIN 35 pg (27-31); MEAN CORPUSCULAR HGB CONC 34 g/dL (33-37); MEAN PLATELET VOLUME 9.8 fl (7.4-10.4); NEU # 4.41 K/mm3 (1.40-6.50); PLATELET COUNT 128 K/mm3 (130-400); RED CELL DISTRIBUTION WIDTH 13.9 % (11.5-14.5); WHITE BLOOD COUNT 6.1 K/mm3 (4.8-10.8)
[2024-06-19 15:58] LABS: ALBUMIN 3.8 g/dL (3.4-4.8)
[2024-06-19 15:59] LABS: SODIUM 135 mmol/L (136-145)
[2024-06-19 16:00] LABS: CALCIUM 9.1 mg/dL (8.3-10.5)
[2024-06-19 16:01] LABS: GLUCOSE 120 mg/dL (75-110); TOTAL PROTEIN 6.3 g/dL (6.2-8.1)
[2024-06-19 16:02] LABS: CARBON DIOXIDE 24 mmol/L (23-31)
[2024-06-19 16:03] LABS: TOTAL BILIRUBIN 1.5 mg/dL (0.2-1.2)
[2024-06-19 16:06] LABS: AST-SGOT 13 U/L (5-34)
[2024-06-19 16:09] LABS: ALT/SGPT < 6 U/L (0-55)
[2024-06-19] MEDS ORDERED: ATORVASTATIN CA40 MG PO (16:12)
[2024-06-19] MEDS ORDERED: ZOSTRIX TP (16:13)
[2024-06-19] MEDS ORDERED: PAIN RELIEF1 EACH TP (16:14)
[2024-06-19] MEDS ORDERED: TESTOSTERO200 MG/1 M IM (16:15)
[2024-06-19] MEDS ORDERED: LEADER C 250 MG1 TAB PO (16:16)
[2024-06-19] MEDS ORDERED: VITAMIN B12500 MC2 PO (16:16)
[2024-06-19 16:35] LABS: D-DIMER 1.79 mg/L FEU (0.15-0.50)
[2024-06-19] MEDS ORDERED: Iodixanol-320 100 ML BOTTLE IV ONE (16:55)
[2024-06-19] MEDS ORDERED: NS 500 ML IV SCH (18:00)
[2024-06-19 20:05] VITALS: BP 137/89
== END 2024-06-19 20:05 | disposition home or self-care (01) ==
LOC: ED 14:53
PROVIDERS: Family Medicine
DX: I95.1 Orthostatic hypotension (principal); I10 Essential (primary) hypertension; E87.1 Hypo-osmolality and hyponatremia; N17.9 Acute kidney failure, unspecified; R79.89 Other specified abnormal findings of blood chemistry
CPT/HCPCS: J7040; J7120; Q9967

== ENCOUNTER → 2024-06-29 | Outpatient (CLI) | payer MEDICARE, BC ==
[~2024-06-29] VITALS: Ht 182.9 cm; Wt 69.1 kg
[~2024-06-29] MED LIST changes: +ATORVASTATIN CA40 MG PO; +Cosyntropin 0.25 MG in NS 5 ML IV ONE; +LEADER C 250 MG1 TAB PO; +PAIN RELIEF1 EACH TP; +TESTOSTERO200 MG/1 M IM; +VITAMIN B12500 MC2 PO; +ZOSTRIX TP
[2024-06-29 08:50] VITALS: BP 131/94
== END ==
LOC: AMSURD 08:31
DX: I95.1 Orthostatic hypotension (principal)
CPT/HCPCS: J0834

== ENCOUNTER → 2024-06-29 | Outpatient (CLI) | payer MEDICARE, BC ==
[~2024-06-29] MED LIST changes: -Cosyntropin 0.25 MG in NS 5 ML IV ONE
[2024-06-29 09:07] LABS: SODIUM 135 mmol/L (136-145)
[2024-06-29 09:08] LABS: CALCIUM 9.1 mg/dL (8.3-10.5)
[2024-06-29 09:09] LABS: GLUCOSE 103 mg/dL (75-110)
[2024-06-29 09:10] LABS: TOTAL PROTEIN 6.9 g/dL (6.2-8.1)
[2024-06-29 09:11] LABS: CARBON DIOXIDE 24 mmol/L (23-31); TOTAL BILIRUBIN 1.5 mg/dL (0.2-1.2)
[2024-06-29 09:15] LABS: AST-SGOT 18 U/L (5-34)
[2024-06-29 09:16] LABS: MAGNESIUM 2.13 mg/dL (1.60-2.60)
[2024-06-29 09:51] LABS: ALT/SGPT < 6 U/L (0-55)
[2024-07-04 14:12] LABS: ADRENOCORTICOTROPIC HORMONE 25.6 pg/mL (7.2-63.3)
[2024-07-06 05:40] LABS: ALPHA 1 GLOBULINS (IEP) 0.2 g/dL (0.0-0.4); ALPHA 2 GLOBULINS (IEP) 0.7 g/dL (0.4-1.0); BETA GLOBULINS (IEP) 0.7 g/dL (0.7-1.3); M SPIKE 1 (IEP) Not Observed g/dL (()); TOTAL PROTEIN (IEP) 6.3 g/dL (6.0-8.5)
== END ==
LOC: LAB 08:28
PROVIDERS: Internal Medicine
DX: G60.9 Hereditary and idiopathic neuropathy, unspecified (principal); I10 Essential (primary) hypertension

== ENCOUNTER 2024-07-09 08:52 | Outpatient (RCR) | payer MEDICARE, BC ==
[2024-06-25 09:12] VITALS: BP 117/79
[~2024-07-09] VITALS: Ht 182.9 cm; Wt 69.1 kg
[~2024-07-09 08:52] MED LIST changes: +Testosterone Cyp in Oil 200 MG/ML 1 ML VIAL IM ONE
[2024-07-09 09:06] VITALS: BP 121/78
[2024-07-09] MEDS ORDERED: Testosterone Cyp in Oil 200 MG/ML 1 ML VIAL IM ONE (09:15)
== END 2024-07-20 | disposition home or self-care (01) ==
LOC: AMSURD
DX: E29.1 Testicular hypofunction (principal); Z79.899 Other long term (current) drug therapy
CPT/HCPCS: J1071

== ENCOUNTER → 2024-07-30 | Outpatient (CLI) | payer MEDICARE, BC ==
[~2024-07-30] MED LIST changes: -Testosterone Cyp in Oil 200 MG/ML 1 ML VIAL IM ONE
== END ==
LOC: RAD 07:49
DX: R13.12 Dysphagia, oropharyngeal phase (principal)

== ENCOUNTER → 2024-08-06 | Outpatient (CLI) | payer MEDICARE, BC ==
[2024-08-06 17:02] LABS: HEMATOCRIT 47.9 % (42.0-52.0); HEMOGLOBIN 16.4 g/dL (13.5-18.0); MEAN CELL VOLUME 106 fl (78-100); MEAN CORPUSCULAR HEMOGLOBIN 36 pg (27-31); MEAN CORPUSCULAR HGB CONC 34 g/dL (33-37); MEAN PLATELET VOLUME 8.8 fl (7.4-10.4); PLATELET COUNT 110 K/mm3 (130-400); RED BLOOD COUNT 4.54 M/mm3 (4.20-5.60); RED CELL DISTRIBUTION WIDTH 14.3 % (11.5-14.5); WHITE BLOOD COUNT 7.5 K/mm3 (4.8-10.8)
[2024-08-06 17:08] LABS: ALBUMIN 3.3 g/dL (3.4-4.8); SODIUM 138 mmol/L (136-145)
[2024-08-06 17:09] LABS: CALCIUM 8.3 mg/dL (8.3-10.5)
[2024-08-06 17:10] LABS: TOTAL PROTEIN 5.5 g/dL (6.2-8.1)
[2024-08-06 17:11] LABS: CARBON DIOXIDE 27 mmol/L (23-31); GLUCOSE 126 mg/dL (75-110)
[2024-08-06 17:12] LABS: TOTAL BILIRUBIN 1.3 mg/dL (0.2-1.2)
[2024-08-06 17:16] LABS: AST-SGOT 17 U/L (5-34)
[2024-08-06 17:17] LABS: ALT/SGPT 10 U/L (0-55)
[2024-08-06 17:40] LABS: BAND 0 % (0-10); LYMPHOCYTE 7 % (20-51); MONOCYTE 7 % (3-10); NEUTROPHILS 86 % (42-75)
== END ==
LOC: LAB 16:49
PROVIDERS: Internal Medicine
DX: I25.10 Atherosclerotic heart disease of native coronary artery without angina pectoris (principal); I10 Essential (primary) hypertension; M79.10 Myalgia, unspecified site

== ENCOUNTER 2024-08-16 13:42 | Emergency (ER) | payer MEDICARE, BC ==
[2024-08-16 14:08] LABS: HEMATOCRIT 50.3 % (42.0-52.0); HEMOGLOBIN 17.4 g/dL (13.5-18.0); MEAN CELL VOLUME 106 fl (78-100); MEAN CORPUSCULAR HEMOGLOBIN 37 pg (27-31); MEAN CORPUSCULAR HGB CONC 35 g/dL (33-37); MEAN PLATELET VOLUME 9.3 fl (7.4-10.4); PLATELET COUNT 112 K/mm3 (130-400); RED BLOOD COUNT 4.77 M/mm3 (4.20-5.60); WHITE BLOOD COUNT 6.8 K/mm3 (4.8-10.8)
[2024-08-16 14:14] LABS: ALBUMIN 3.2 g/dL (3.4-4.8)
[2024-08-16 14:15] LABS: CALCIUM 8.2 mg/dL (8.3-10.5)
[2024-08-16 14:16] LABS: TOTAL PROTEIN 5.5 g/dL (6.2-8.1)
[2024-08-16 14:18] LABS: TOTAL BILIRUBIN 1.4 mg/dL (0.2-1.2)
[2024-08-16 14:25] LABS: LYMPHOCYTE 5 % (20-51); MONOCYTE 5 % (3-10); NEUTROPHILS 90 % (42-75)
[2024-08-16 14:45] LABS: TROPONIN-I 0.144 ng/mL (0.00-0.033)
[2024-08-16 16:03] LABS: URINE WBC 0 /hpf (0-3)
[2024-08-16 16:04] LABS: PH-URINE 7.5 (5.0 - 8.0); URINE APPEARANCE CLEAR (CLEAR); URINE BILIRUBIN NEGATIVE (NEGATIVE); URINE BLOOD NEGATIVE (NEGATIVE); URINE COLOR AMBER (YELLOW); URINE GLUCOSE NEGATIVE (NEGATIVE); URINE KETONE NEGATIVE (NEGATIVE); URINE LEUKOCYTE ESTERASE NEGATIVE (NEGATIVE); URINE NITRATE NEGATIVE (NEGATIVE); URINE PROTEIN(semi-quant) TRACE (NEGATIVE)
[2024-08-16 18:14] VITALS: BP 149/86
== END 2024-08-16 18:16 | disposition home or self-care (01) ==
LOC: ED 13:42
PROVIDERS: Family Medicine
DX: I48.91 Unspecified atrial fibrillation (principal); R00.0 Tachycardia, unspecified; R74.8 Abnormal levels of other serum enzymes; R35.0 Frequency of micturition; Z95.0 Presence of cardiac pacemaker
CPT/HCPCS: J7120

== ENCOUNTER → 2024-08-19 | Outpatient (RCR) | payer MEDICARE, BC ==
[2024-07-23 10:16] VITALS: BP 131/83
[2024-08-06 10:09] VITALS: BP 138/88
--- NOTE | 2024-08-16 13:00 | NUR ---
PATIENT FOUND TO BE IN A FIB RVR WHILE GETTING PRE ORTHOSTATICS PER DR. POSEY ORDERS. PATIENT TRANSFERED TO ED AT THIS TIME. UNABLE TO REACH DR. POSEY. NOTIFIED KENDY MORLEY OF PATIENT STATUS.
[~2024-08-19] VITALS: Ht 182.9 cm; Wt 69.1 kg
[~2024-08-19] MED LIST changes: +NS 1,000 ML IV SCH; +Testosterone Cyp in Oil 200 MG/ML 1 ML VIAL IM ONE; +Testosterone Cyp in Oil 200 MG/ML 1 ML VIAL IM SCH
[2024-08-19 13:05] VITALS: BP 126/76
== END | disposition home or self-care (01) ==
LOC: AMSURD
DX: E29.1 Testicular hypofunction (principal)
CPT/HCPCS: J1071

== ENCOUNTER → 2024-08-22 | Outpatient (CLI) | payer MEDICARE, BC ==
[~2024-08-22] MED LIST changes: -NS 1,000 ML IV SCH; -Testosterone Cyp in Oil 200 MG/ML 1 ML VIAL IM ONE; -Testosterone Cyp in Oil 200 MG/ML 1 ML VIAL IM SCH
[2024-08-22 12:30] LABS: ALBUMIN 3.3 g/dL (3.4-4.8)
[2024-08-22 12:32] LABS: CALCIUM 8.3 mg/dL (8.3-10.5)
== END ==
LOC: LAB 12:08
PROVIDERS: Internal Medicine Nephrology
DX: I12.9 Hypertensive chronic kidney disease with stage 1 through stage 4 chronic kidney disease, or unspecified chronic kidney disease (principal); N18.4 Chronic kidney disease, stage 4 (severe)

== ENCOUNTER 2024-08-23 10:15 | Outpatient (RCR) | payer MEDICARE, BC | END 2024-09-19 | disposition home or self-care (01) | LOC: PT | DX: G20.A1 Parkinson's disease without dyskinesia, without mention of fluctuations (principal) ==

== ENCOUNTER → 2024-09-03 | Day surgery (SDC) | payer MEDICARE, BC ==
[~2024-09-03] MED LIST changes: +Iohexol 300 - 10 ML VIAL IV ONE; +Lidocaine PF 2% (20 MG/ML) 2 ML VIAL IJ ONE
== END ==
LOC: MSO 12:24
DX: M47.22 Other spondylosis with radiculopathy, cervical region (principal); G62.9 Polyneuropathy, unspecified; Z79.82 Long term (current) use of aspirin; Z79.02 Long term (current) use of antithrombotics/antiplatelets; Z86.16 Personal history of COVID-19; Z87.891 Personal history of nicotine dependence; Z85.46 Personal history of malignant neoplasm of prostate
CPT/HCPCS: J1100; Q9967

== ENCOUNTER 2024-09-16 09:53 | Outpatient (RCR) | payer MEDICARE, BC ==
[2024-09-02 09:14] VITALS: BP 131/77
[~2024-09-16] VITALS: Ht 182.9 cm; Wt 69.1 kg
[~2024-09-16 09:53] MED LIST changes: -Iohexol 300 - 10 ML VIAL IV ONE; -Lidocaine PF 2% (20 MG/ML) 2 ML VIAL IJ ONE; +Testosterone Cyp in Oil 200 MG/ML 1 ML VIAL IM ONE
[2024-09-16] MEDS ORDERED: Testosterone Cyp in Oil 200 MG/ML 1 ML VIAL IM SCH (10:00)
[2024-09-16 10:20] VITALS: BP 138/83
== END 2024-09-19 | disposition home or self-care (01) ==
LOC: AMSURD
DX: Z51.81 Encounter for therapeutic drug level monitoring (principal); E29.1 Testicular hypofunction
CPT/HCPCS: J1071

== ENCOUNTER 2024-09-20 08:22 | Outpatient (RCR) | payer MEDICARE, BC ==
[~2024-09-20 08:22] MED LIST changes: -Testosterone Cyp in Oil 200 MG/ML 1 ML VIAL IM ONE
[2024-09-30] MEDS ORDERED: GABAPENTIN100 MG PO (10:23)
== END 2024-10-19 ==
LOC: SPEECH
DX: R13.12 Dysphagia, oropharyngeal phase (principal)

== ENCOUNTER → 2024-11-11 | Outpatient (CLI) | payer MEDICARE, BC ==
[2024-11-11 11:34] LABS: BASO # 0.02 K/mm3 (0.02-0.10); EOS # 0.02 K/mm3 (0.04-0.40); EOS % 0.2 % (0.0-4.0); HEMATOCRIT 52.9 % (42.0-52.0); HEMOGLOBIN 17.8 g/dL (13.5-18.0); LYMPH# 0.62 K/mm3 (1.50-4.00); MEAN CELL VOLUME 109 fl (78-100); MEAN CORPUSCULAR HEMOGLOBIN 37 pg (27-31); MEAN CORPUSCULAR HGB CONC 34 g/dL (33-37); MEAN PLATELET VOLUME 9.7 fl (7.4-10.4); NEU # 8.11 K/mm3 (1.40-6.50); PLATELET COUNT 119 K/mm3 (130-400); RED BLOOD COUNT 4.86 M/mm3 (4.20-5.60); RED CELL DISTRIBUTION WIDTH 14.1 % (11.5-14.5); WHITE BLOOD COUNT 9.6 K/mm3 (4.8-10.8)
[2024-11-11 11:43] LABS: ALBUMIN 3.4 g/dL (3.4-4.8); SODIUM 140 mmol/L (136-145)
[2024-11-11 11:44] LABS: CALCIUM 8.7 mg/dL (8.3-10.5)
[2024-11-11 11:45] LABS: GLUCOSE 174 mg/dL (75-110); TOTAL PROTEIN 5.7 g/dL (6.2-8.1)
[2024-11-11 11:46] LABS: CARBON DIOXIDE 27 mmol/L (23-31)
[2024-11-11 11:47] LABS: TOTAL BILIRUBIN 1.4 mg/dL (0.2-1.2)
[2024-11-11 11:51] LABS: AST-SGOT 12 U/L (5-34)
[2024-11-11 11:53] LABS: ALT/SGPT < 6 U/L (0-55)
[2024-11-11 22:55] LABS: FOLATE (FOLIC ACID) >20.0 ng/mL (2.0-20.0)
[2024-11-16 05:38] LABS: VITAMIN B1 346.9 nmol/L (())
== END ==
LOC: LAB 10:56
PROVIDERS: Internal Medicine
DX: I10 Essential (primary) hypertension (principal); R73.9 Hyperglycemia, unspecified; R20.2 Paresthesia of skin

== ENCOUNTER → 2024-11-18 | Outpatient (CLI) | payer MEDICARE, BC | LOC: RAD 16:06 | DX: R05.9 Cough, unspecified (principal) ==

== ENCOUNTER → 2024-12-24 | Outpatient (CLI) | payer MEDICARE, BC ==
[2024-12-24 14:40] LABS: ALBUMIN 3.5 g/dL (3.4-4.8)
[2024-12-24 14:42] LABS: CALCIUM 8.8 mg/dL (8.3-10.5)
== END ==
LOC: LAB 14:14
PROVIDERS: Internal Medicine Nephrology
DX: I12.9 Hypertensive chronic kidney disease with stage 1 through stage 4 chronic kidney disease, or unspecified chronic kidney disease (principal); N18.4 Chronic kidney disease, stage 4 (severe)

== ENCOUNTER → 2024-12-26 | Outpatient (CLI) | payer MEDICARE, BC | LOC: LAB 07:50 | PROVIDERS: Internal Medicine Nephrology | DX: I12.9 Hypertensive chronic kidney disease with stage 1 through stage 4 chronic kidney disease, or unspecified chronic kidney disease (principal); N18.4 Chronic kidney disease, stage 4 (severe) ==

== ENCOUNTER → 2025-01-13 | Outpatient (CLI) | payer MEDICARE, BC ==
[2025-01-13 17:40] LABS: HEMATOCRIT 56.2 % (42.0-52.0); HEMOGLOBIN 18.9 g/dL (13.5-18.0); MEAN CELL VOLUME 108 fl (78-100); MEAN CORPUSCULAR HEMOGLOBIN 36 pg (27-31); MEAN CORPUSCULAR HGB CONC 34 g/dL (33-37); MEAN PLATELET VOLUME 9.4 fl (7.4-10.4); PLATELET COUNT 112 K/mm3 (130-400); RED CELL DISTRIBUTION WIDTH 14.4 % (11.5-14.5); WHITE BLOOD COUNT 10.3 K/mm3 (4.8-10.8)
[2025-01-13 17:47] LABS: ALBUMIN 3.3 g/dL (3.4-4.8)
[2025-01-13 17:48] LABS: CALCIUM 8.5 mg/dL (8.3-10.5)
[2025-01-13 17:51] LABS: TOTAL BILIRUBIN 1.3 mg/dL (0.2-1.2)
[2025-01-13 17:56] LABS: MAGNESIUM 1.85 mg/dL (1.60-2.60)
[2025-01-13 18:43] LABS: LYMPHOCYTE 4 % (20-51); MONOCYTE 2 % (3-10); NEUTROPHILS 94 % (42-75)
== END ==
LOC: LAB 17:20
PROVIDERS: Internal Medicine
DX: I10 Essential (primary) hypertension (principal); R73.9 Hyperglycemia, unspecified